=== PATIENT | male | born 1980 | race Caucasian/White ===

== ENCOUNTER 2023-12-31 17:48 | Emergency (ER) | payer MEDICAID, SELFPAY ==
--- NOTE | 2023-12-31 18:01 | ED_ITS ---
HPI - Overdose General Chief Complaint: Overdose Stated Complaint: OD, 2MG NARCAN GIVEN Time Seen by Provider: 12/31/23 18:01 Source: patient Mode of arrival: ambulatory Limitations: no limitations History of Present Illness ED Provider: magdalena PHAM Narrative: Patient with remote history of substance abuse was using weed likely lased with fentanyl which he was not aware was given 2 mg of Narcan by EMS now patient is alert awake patient was found with several bags of heroin with him Related Data Allergies Allergy/AdvReac Type Severity Reaction Status Date / Time Penicillins [PENICILLINS] Allergy Severe ANAPHYLACTI Unverified 12/31/23 18:09 C codeine [CODEINE] Allergy Mild RASH Unverified 12/31/23 18:09 Review of Systems Review of Systems: Yes all other systems are reviewed and are negative [facility] Social History Social History Advance Directives: No Advance Directives Information Provided: No Do you have a plan to hurt others: No Plan Physical Exam Vital Signs: Vital Signs: Last Vital Signs Temp 97.6 F 12/31/23 20:07 Pulse 70 12/31/23 20:07 Resp 16 12/31/23 20:07 BP 148/74 H 12/31/23 20:07 Pulse Ox 96 12/31/23 20:07 O2 Del Method Room Air 12/31/23 20:07 BMI result Body Mass Index 32.3 Appearance: Alert. Oriented X3. No acute distress. Eyes: PERRLA, No Nystagmus ENT: Pharynx normal. Oral Mucosa moist Neck: Normal inspection. Neck supple. CVS: Normal heart rate and rhythm. Pulses normal. Respiratory: No respiratory distress. Equal air entry bilateral, no wh eezing/rales/rhonchi Abdomen: Soft and nontender. Bowel sounds are present, no mass palpable, no CVA tenderness Skin: Skin warm and dry. Normal skin color. Normal skin turgor. Extremities: No lower extremity edema. No calf tenderness Neuro: Oriented X 3. No motor deficit. No sensory deficit.No cerebellar signs , cranial nerves II-XII intact Medications Administered Discontinued Medications Generic Name Dose Route Start Last Admin Trade Name Freq PRN Reason Stop Dose Admin Naloxone HCl 8 mg 12/31/23 19:17 12/31/23 20:07 Naloxone Hcl Nasal Take Home 4 Mg [place] NOSTRILALT 12/31/23 19:18 Not Given ONCE ONE Medical Decision Making Medical Decision Making MDM Narrative: Patient's substance abuse urine positive for methadone and fentanyl walking does not want to go to detox discharge patient home on home Narcan Lab Data [facility] Lab Attestation statement: I reviewed the patient's lab results. Labs: Lab Results 12/31/23 Range/Units 19:27 Urine Opiates Screen Not Detected (Not Detect) Ur Buprenorphine Scrn Not Detected (Not Detect) ng/mL Ur Oxycodone Screen Not Detected (Not Detect) ng/mL Urine Methadone Screen Positive H (Not Detect) ng/mL Urine Fentanyl Screen POSITIVE H (Not Detect) Ur Barbiturates Screen Not Detected (Not Detect) Ur Phencyclidine Scrn Not Detected (Not Detect) Ur Amphetamines Screen Not Detected (Not Detect) U Benzodiazepines Scrn Not Detected (Not Detect) Urine Cocaine Screen Not Detected (Not Detect) U Marijuana (THC) Screen Not Detected (Not Detect) Discharge Plan Discharge Clinical Impression: Poisoning by opiate or related narcotic Patient Disposition: Home, Self-Care Instructions: Opioid Use Disorder (ED) Additional Instructions: Do not use heroin/opiate Follow up with detox Interventions: ED Discharge Assessment Last Done: 12/31/23 20:07 Discharge Date/Time: 12/31/23 20:09 Print Language: Slovenian
[2023-12-31 18:04] VITALS: BP 134/78; PULSE 110; RESP 16; TEMP 36.9; O2SAT 98; BMI 32.3
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
--- OUTSIDE RECORDS SUMMARY | 2023-12-31 19:43 | XMS_ITS | Continuity of Care Document ---
Author Organization [facility] Address [address] [place] [address]- Care Team Providers Care Mosaic Layer Name Role Phone Line-Verena Avilez DO Primary Care Physician [phone] [place] [facility] [place] - 07/04/[address] [address] [phone] Discharge Disposition: A-D/C Home Attending Physician: Juanpablo Burger DO Admitting Physician: Juanpablo Burger DO Referring Physician: Not on Staff, Referring MD Allergies, Adverse Reactions, Alerts Substance Reaction Severity Status codeine Active penicillin Active sulfa drugs Active Motrin Nausea Unknown Active Vicodin itchy Active Immunizations Given and Recorded Vaccine Date Status Refusal Reason tetanus/diphtheria/pertussis, acel(Tdap) 1 11/24/10 Given 1Admin Note: vis given Medications Chlordiazepoxide 75 mgs, By Mouth, Daily, 0 Refills, Maintenance, 07/04/19 7:10:00 EST Start Date: 07/04/19 Status: Ordered chlordiazePOXIDE 25 mg oral capsule 3 capsule = 75 mg, By Mouth, 2 times a day, 0 Refills, Maintenance, 07/05/19 1:39:00 EST Start Date: 07/05/19 Status: Ordered chlordiazePOXIDE 25 mg oral capsule 3 capsule = 75 mg, By Mouth, 3 times a day, 0 Refills, Maintenance, 07/03/19 1:40:00 EST, Capsule Start Date: 07/03/19 Status: Ordered cloNIDine 0.1 mg oral tablet 0.1 mg, 1, tablet, By Mouth, 2 times a day, # 60 tablet, Refills 0, Maintenance, 07/04/19 7:11:00 EST Start Date: 07/04/19 Status: Ordered folic acid 1 mg oral tablet 1 mg, By Mouth, Daily, # 30 tablet, Refills 0, Tot. Refills 0, Maintenance, 02/10/19 10:35:58 EDT, Print Requisition Start Date: 02/10/19 Stop Date: 03/12/19 Status: Ordered Gabapentin 600 mgs, By Mouth, 3 times a day, 0 Refills, Maintenance, 07/04/19 7:13:00 EST Start Date: 07/04/19 Status: Ordered Methadone = 30 mg, By Mouth, Daily, 0 Refills, Maintenance, 07/04/19 7:13:00 EST, Partial fill upon patient request Start Date: 07/04/19 Status: Ordered thiamine 100 mg oral tablet 100 mg, 1, tablet, By Mouth, Daily, # 7 tablet, Refills 0, Maintenance, 07/04/19 7:14:00 EST Start Date: 07/04/19 Stop Date: 07/11/19 Status: Ordered Problem List Condition Effective Dates Status Health Status Inform ant Pain in forearm - right(Confirmed) Active Right wrist sprain 11/22/10(Confirmed) 11/22/10 Active Vital Signs Most recent to oldest [Reference Range]: 1 2 3 Height 178 cm (07/04/19 9:46 AM) 178 cm (07/04/19 9:00 AM) 178 cm (07/04/19 8:15 AM) Weight 73 kg (07/04/19 9:46 AM) 73 kg (07/04/19 9:00 AM) 73 kg (07/04/19 8:15 AM) Oxygen Saturation [94-100 %] 98 % (07/04/19 9:46 AM) 99 % (07/04/19 6:29 AM) Pulse Rate [55-90 bpm] 66 bpm (07/04/19 9:46 AM) 62 bpm (07/04/19 9:00 AM) 78 bpm (07/04/19 6:29 AM) Body Mass Index [18.5-24.99] 23.04 (07/04/19 9:46 AM) 23.04 (07/04/19 9:00 AM) 23.04 (07/04/19 8:15 AM) Blood Pressure [90-138/55-84 mm Hg] 111/72mm Hg (07/04/19 9:46 AM) 104/66mm Hg (07/04/19 9:00 AM) 122/100mm Hg (07/04/19 8:15 AM) Respiratory Rate [16-30 br/min] 18 br/min (07/04/19 7:52 AM) 18 br/min (07/04/19 6:29 AM) Temperature [96.8-100.4 DegF] 97.5 DegF (07/04/19 6:29 AM) Mode of Delivery (Oxygen) Room air (07/04/19 9:46 AM) Room air (07/04/19 6:29 AM) Blood pressure sites Arm, left (07/04/19 9:46 AM) Arm, right (07/04/19 9:00 AM) Arm, right (07/04/19 8:15 AM) Temperature Route Oral (07/04/19 6:29 AM) Dry Weight 73 kg (07/04/19 9:46 AM) 73 kg (07/04/19 9:00 AM) 73 kg (07/04/19 8:15 AM)
--- OUTSIDE RECORDS SUMMARY | 2023-12-31 19:43 | XMS_ITS | Continuity of Care Document ---
Author Organization [facility] Address [address] [place] [address]- Care Team Providers Care Large Animal Husbandry Technician Name Role Phone Line-Verena Avilez DO Primary Care Physician [phone] Encounter [facility] [place] Date(s): 07/04/19 - 07/05/[address] [address] [phone] Discharge Disposition: Transferred to short-term general hospit Attending Physician: Florian West MD Admitting Physician: Florian West MD Referring Physician: Not on Staff, Referring MD Allergies, Adverse Reactions, Alerts Substance Reaction Severity Status codeine Active penicillin Active sulfa drugs Active Motrin Nausea Unknown Active Vicodin itchy Active Suboxone Active Immunizations Given and Recorded Vaccine Date Status Refusal Reason tetanus/diphtheria/pertussis, acel(Tdap) 1 11/24/10 Given 1Admin Note: vis given Medications Alprazolam 2 mg, By Mouth, 3 times a day, PRN, Refills 0, Maintenance, as needed for anxiety, 07/05/19 2:31:00EST Start Date: 07/05/19 Status: Ordered Chlordiazepoxide 75 mgs, By Mouth, Daily, 0 [...] patient request Start Date: 07/04/19 Status: Ordered Phenobarbital PRN Seizure Activity, 0 Refills, Maintenance, 07/05/19 3:12:00 EST Start Date: 07/05/19 Status: Ordered thiamine 100 mg oral tablet [...] 1 2 3 Height 178 cm (07/04/19 11:37 PM) 178 cm (07/04/19 11:00 PM) 178 cm (07/04/19 9:11 PM) Weight 61.5 kg (07/04/19 11:37 PM) 61.5 kg (07/04/19 11:00 PM) 61.5 kg (07/04/19 9:11 PM) Oxygen Saturation [94-100 %] 99 % (07/04/19 11:37 PM) 98 % (07/04/19 11:00 PM) 98 % (07/04/19 9:11 PM) Pulse Rate [55-90 bpm] 69 bpm (07/04/19 11:37 PM) 76 bpm (07/04/19 11:00 PM) 78 bpm (07/04/19 9:11 PM) Body Mass Index [18.5-24.99] 19.41 (07/04/19 11:37 PM) 19.41 (07/04/19 11:00 PM) Blood Pressure [90-138/55-84 mm Hg] 122/94mm Hg (07/04/19 11:37 PM) 115/78mm Hg (07/04/19 11:00 PM) 131/69mm Hg (07/04/19 9:11 PM) Respiratory Rate [16-30 br/min] 18 br/min (07/04/19 11:37 PM) 18 br/min (07/04/19 11:00 PM) 18 br/min (07/04/19 9:11 PM) Mode of Delivery (Oxygen) room air (07/04/19 11:37 PM) Room air (07/04/19 11:00 PM) Room air (07/04/19 9:11 PM) Blood pressure sites Arm, left (07/04/19 11:00 PM) Arm, left (07/04/19 9:11 PM) Dry Weight 61.5 kg (07/04/19 11:37 PM) 61.5 kg (07/04/19 11:00 PM) 61.5 kg (07/04/19 9:11 PM) Social History Social History Type Response Smoking Status 10 or more cigarette s (1/2 pack or more)/day in last 30 days; Type: Cigarettes; Other: 30 a day; entered on: 07/05/19 Sex
--- OUTSIDE RECORDS SUMMARY | 2023-12-31 19:43 | XMS_ITS | Continuity of Care Document ---
Author Organization [facility] Address [address] [place] [address]- Care Team Providers Care Stock Patcher Name Role Phone Line-Verena Avilez DO Primary Care Physician Encounter [facility] [place] Date(s): 01/06/23 - 01/06/23 [facility] [address] [place] [address]- Discharge Disposition: A-D/C Snf, Mcfp, or Group Home Fac Attending Physician: Daniela Hebert MD Admitting Physician: Daniela Hebert MD Referring Physician: Not on Staff, Referring [...] Date: 07/11/19 Status: Ordered Problem List Condition Confirmation Course Effective Dates Status [facility] Pain in forearm - right Confirmed Active Right wrist sprain 11/22/10 Confirmed 11/22/10 Active Vital Signs Most recent to oldest [Reference Range]: 1 2 Height 180 cm (01/06/23 1:01 AM) Weight 71 kg (01/06/23 1:01 AM) Oxygen Saturation [94-100 %] 100 % (01/06/23 2:15 AM) 99 % (01/06/23 1:01 AM) Pulse Rate [55-90 bpm] 58 bpm (01/06/23 2:15 AM) 68 bpm (01/06/23 1:01 AM) Blood Pressure [90-138/55-84 mm Hg] 134/ 84mm Hg (01/06/23 2:15 AM) 114/69mm Hg (01/06/23 1:01 AM) Respiratory Rate [16-30 br/min] 18 br/mi n (01/06/23 2:15 AM) 15 br/min *L* (01/06/23 1:01 AM) Temperature [96.8-100.4 DegF] 98.3 DegF (01/06/23 1:01 AM) Mode of Delivery (Oxygen) Room air (01/06/23 2:15 AM) Room air (01/06/23 1:01 AM) Blood pressure sites Arm, right (01/06/23 2:15 AM) Arm, left (01/06/23 1:01 AM) Temperature Route Oral (01/06/23 1:01 AM) Dry Weight 71 kg (01/06/23 1:01 AM) Weight Obtained Via Bed scale (01/06/23 1:01 AM) Dry Weight Obtained Via Bed scale (01/06/23 1:01 AM) Social History Social History Type Response Smoking Status 10 or more cigarette s (1/2 pack or more)/day in last 30 days; Type: Cigarettes; Other: 30 a day; entered on: 07/05/19 Sex Patient Care team information Care Team Personnel Name: Verena Drew DO Position: Reference Physician Member Role: PCP Address: Address: [address] [place] [address], [facility] [address] [place] [address]- Name: Michele Caro RN Position: [facility] RN Member Role: Primary Care Nurse Name: Lula Blanco RN Position: [facility] RN Member Role: Primary Care Nurse Name: Daniela Hebert MD Position: [facility] ED Medicine MD Member Role: ED Attending Physician Address: Address: [address] [place] [id number]- Name: Yesenia Lorenzo RN Position: [facility] ED RN W/OE and Tasks Member Role: Patient Care Provider Care Team Related Persons Name: CYDNEY JAUREGUI Address: home [address] [place] [id number]
--- OUTSIDE RECORDS SUMMARY | 2023-12-31 19:43 | XMS_ITS | Continuity of Care Document ---
Author Organization [facility] Address [address] [place] [address]- Care Team Providers Care Hygiene Assistant Name Role Phone Line-Verena Avilez DO Primary Care Physician [phone] [place] [facility] [place] 07/05/19 - 07/07/[address] [address]- [facility] Discharge Disposition: A-D/C Home Attending Physician: Titi Stover DO Admitting Physician: Tim Diaz MD Referring Physician: Tim Diaz MD Allergies, Adverse Reactions, Alerts Substance Reaction [...] oldest [Reference Range]: 1 2 3 Height 180 cm (07/05/19 11:45 PM) 180 cm (07/05/19 7:36 PM) 180 cm (07/05/19 7:04 AM) Weight 74.2 kg (07/05/19 2:24 AM) 62.9 kg (07/05/19 2:17 AM) Oxygen Saturation [94-100 %] 98 % (07/06/19 11:28 PM) 99 % (07/06/19 8:32 PM) 99 % (07/06/19 10:00 AM) Pulse Rate [55-90 bpm] 63 bpm (07/06/19 11:28 PM) 73 bpm (07/06/19 8:32 PM) 67 bpm (07/06/19 10:00 AM) Body Mass Index [18.5-24.99] 22.9 (07/05/19 2:24 AM) Blood Pressure [90-138/55-84 mm Hg] 122/82mm Hg (07/06/19 11:28 PM) 124/81mm Hg (07/06/19 8:32 PM) 113/69mm Hg (07/06/19 10:00 AM) Respiratory Rate [16-30 br/min] 18 br/min (07/07/19 9:03 AM) 18 br/min (07/07/19 9:02 AM) 20 br/min (07/06/19 11:28 PM) Temperature [96.8-100.4 DegF] 98.1 DegF (07/06/19 11:28 PM) 98.3 DegF (07/06/19 8:32 PM) 98.4 DegF (07/06/19 10:00 AM) Liters per Minute 0 L/min (07/05/19 12:00 PM) 0 L/min (07/05/19 8:26 AM) Mode of Delivery (Oxygen) Room air (07/06/19 11:28 PM) Room air (07/06/19 8:32 PM) Room air (07/06/19 10:00 AM) Blood pressure sites Arm, right (07/06/19 11:28 PM) Arm, right (07/06/19 8:32 PM) Arm, left (07/06/19 10:00 AM) Temperature Route Oral (07/06/19 11:28 PM) Oral (07/06/19 8:32 PM) Oral (07/06/19 10:00 AM) Dry Weight 74.2 kg (07/05/19 2:24 AM) Weight Obtained Via Bed scale (07/05/19 2:17 AM) Sensory deficits None (07/05/19 2:24 AM) Mobility assistance Independent (07/05/19 2:24 AM) Social History Social History Type Response Smoking Status 10 or more cigarette s (1/2 pack or more)/day in last 30 days; Type: Cigarettes; Other: 30 a day; entered on: 07/05/19 Sex
--- OUTSIDE RECORDS SUMMARY | 2023-12-31 19:43 | XMS_ITS | Continuity of Care Document ---
Author Organization [facility] Address [address] [place] [address] Phone Care Team Providers Care Check And Transfer Beader Name Role Phone Pcp-Amanda, Md CASON Primary Care Provider Chidi Andujar MD Emergency Provider [email or web address] Care Teams Patient Care Team Team Status: Active Member Role Status Dates Pcp-MD Amanda Primary Care Provider Active Patient Care Team Team Status: Inactive Member Role Status Dates Pcp-Amanda , Primary Care Provider Active St art: December 05, 2023 End: December 05, 2023 Chidi Draper MD Emergency Provider Active Start : December 05, 2023 End: December 05, 2023 Chief Complaint and Reason for Visit Chief Complaint Admit Date ALT MS December 05, 2023 1:14 pm Allergies, Adverse Reactions, Alerts Allergen Type Severity Reaction Last Updated Verified Status hydrocodone Allergy Mild unknown December 05, 2023 1:16pm Yes Active Penicillins Allergy Mild unknown December 05, 2023 1:16pm Yes Active Social History Smoking Status Status Start Date End Date Date of Observa tion Unknown if ever smoked December 05, 2023 3:45pm Observation Status Observation Response Date of Response Living Situation Short Term Rehab December 04 3:45pm Patient Sex Male December 05, 2023 4:51pm Assigned Sex Male April Problems Active Problems Medical Problem Onset Date Status Opiate use Active Substance abuse Active Lethargy Active Relevant Diagnostic Tests and/or Laboratory Data Laboratory Results Test Date/Time Result Interpretation Reference Range Result Comment Performing Site White Blood Count December 05, 2023 2:30pm 11.5 X10 3/uL 4.5-11.0 [facility] [id number] [address] [place] [address] Red Blood Count December 05, 2023 2:30pm 4.61 X10 6/uL 4.00-5.50 [facility] [id number] [address] [facility] Yohan BELLAMY [address] Hemoglobin December 05, 2023 2:30pm 13.2 g/dl 13.0-17.0 [facility] [id number] 200 [facility] Yohan BELLAMY [address] Hematocrit December 05, 2023 2:30pm 38.8 % 37.5-50.0 [facility] [id number] 200 [facility] Yohan JOSESITO [address] Mean Corpuscular Volume December 05, 2023 2:30pm 84.2 fl 80.0-100.0 [facility] [id number] 200 [facility] Yohan JOSESITO [address] Mean Corpuscular Hemoglobin December 05, 2023 2:30pm 28.6 pg 27.0-34.0 [facility] [id number] [address] [facility] [address] Mean Corpuscular Hemoglobin Concent December 05, 2023 2:30pm 34.0 g/dl 31.0-36.0 [facility] [id number] 200 [facility] Yohan JOSESITO [address] Red Cell Distribution Width December 05, 2023 2:30pm 12.6 % 11.5-15.0 [facility] [id number] 200 [facility] Yohan BELLAMY [address] Platelet Count December 05, 2023 2:30pm 113 X10 3/uL 150-400 [facility] [id number] 200 [facility] [address] Immature Granulocyte % (Auto) December 05, 2023 2:30pm 0.4 % [facility] [id number] [address] [facility] [address] Neutrophils (%) (Auto) December 05, 2023 2:30pm 79.7 % [facility] [id number] [address] [facility] [address] Lymphocytes (%) (Auto) December 05, 2023 2:30pm 12.3 % [facility] [id number] 200 [facility] [address] Monocytes (%) (Auto) December 05, 2023 2:30pm 5.4 % [facility] [id number] 200 [facility] [address] Eosinophils (%) (Auto) December 05, 2023 2:30pm 1.9 % [facility] [id number] 200 [facility] [address] Basophils (%) (Auto) December 05, 2023 2:30pm 0.3 % [facility] [id number] 200 [facility] [address] Immature Granulocyte # (Auto) December 05, 2023 2:30pm 0.05 X10 3/uL 0.00-0.09 [facility] [id number] 200 [facility] [address] Neutrophils # (Auto) December 05, 2023 2:30pm 9.2 X10 3/uL 1.5-7.8 [facility] [id number] 200 [facility] [address] Lymphocytes # (Auto) December 05, 2023 2:30pm 1.4 X10 3/uL 1.0-4.8 [facility] [id number] 200 [facility] [address] Monocytes # (Auto) December 05, 2023 2:30pm 0.6 X10 3/uL 0.0-0.8 [facility] [id number] 200 [facility] [address] Eosinophils # (Auto) December 05, 2023 2:30pm 0.2 X10 3/uL 0.0-0.5 [facility] [id number] 200 [facility] [address] Basophils # (Auto) December 05, 2023 2:30pm 0.0 X10 3/uL 0.0-0.2 [facility] [id number] 200 [facility] [address] Nucleated Red Blood Cells % December 05, 2023 2:30pm 0.0 /100 WBC 0.0-0.0 [facility] [id number] 200 [facility] [address] Sodium Level December 05, 2023 2:31pm 136 mmol/L 137-146 [facility] [id number] [address] [facility] [address] Potassium Level December 05, 2023 2:31pm 5.1 mmol/L 3.5-5.3 [facility] [id number] 200 [facility] [address] Chloride Level December 05, 2023 2:31pm 100 mmol/L 98-107 [facility] [id number] 200 [facility] [address] Carbon Dioxide Level December 05, 2023 2:31pm 22 mmol/L 23-32 [facility] [id number] 200 [facility] [address] Anion Gap December 05, 2023 2:31pm 14 mmol/L 5-15 [facility] [id number] 200 [facility] [address] Blood Urea Nitrogen December 05, 2023 2:31pm 15 mg/dl 5-25 [facility] [id number] 200 [facility] [address] Creatinine December 05, 2023 2:31pm 1.1 mg/dL 0.6-1.4 [facility] [id number] 200 [facility] [address] Estimated Creatinine Clearance December 05, 2023 2:31pm 104.1 ml/min This value is calculated by Cockcroft Gault Equation using ideal body weight. This result is dependent on an accurate patient height and weight which is obtained from patients medical record. Petracroft, D.W. and M.H. Gault. Prediction of creatinine clearance from serum creatinine. Nephron. 1976. 16(1):31-41. [facility] [id number] 200 [facility] [address] Estimat Glomerular Filtration Rate December 05, 2023 2:31pm 86 >90 Reported eGFR is based on the CKD-EPI 2020 equation that does not use a race coefficient. Additional information can be found at:[email or web address] ([email or web address]) [facility] [id number] 200 [facility] [address] BUN/Creatinine Ratio December 05, 2023 2:31pm 13.6 10.0-20.0 [facility] [id number] 200 [facility] [address] Glucose Level December 05, 2023 2:31pm 104 mg/dL 70-100 [facility] [id number] 200 [facility] [address] Calcium Level December 05, 2023 2:31pm 9.9 mg/dl 8.6-10.3 [facility] [id number] 200 [facility] [address] Total Bilirubin December 05, 2023 2:31pm 0.4 mg/dl <1.1 [facility] [id number] 200 [facility] [address] Aspartate Amino Transf (AST/SGOT) December 05, 2023 2:31pm 45 U/L 15-41 [facility] [id number] 200 [facility] [address] Alanine Aminotransfera se (ALT/SGPT) December 05, 2023 2:31pm 40 U/L 14-63 [facility] [id number] 200 [facility] [address] Ammonia December 05, 2023 2:08pm 50 umol/L 16-60 [facility] [id number] 200 [facility] [address] Total Protein December 05, 2023 2:31pm 7.4 g/dL 6.4-8.3 [facility] [id number] 200 [facility] [address] Albumin December 05, 2023 2:31pm 4.1 g/dl 4.0-5.0 [facility] [id number] 200 [facility] [address] Albumin/Globul in Ratio December 05, 2023 2:31pm 1.2 1.0-2.6 [facility] [id number] 200 [facility] [address] Alkaline Phosphatase December 05, 2023 2:31pm 102 U/L 40-129 [facility] [id number] 200 [facility] [address] Urine Amphetamines Screen December 05, 2023 2:26pm Negative Negative Amphetamines Cutoff level 1000 ng/mL. [facility] [id number] 200 [facility] [address] Urine Methadone Screen December 05, 2023 2:26pm Positive Negative Confirmation by GC/MS not routinely performed for Non-Maternity locations. If confirmation is required, an order must be placed.Methadone Cutoff level 300 ng/mL [facility] [id number] 200 [facility] [address] Urine Oxycodone Screen December 05, 2023 2:26pm Negative Negative Oxycontin/Oxycod one Cutoff level 100 ng/mL [facility] [id number] 200 [facility] [address] Urine Buprenorphine Screen December 05, 2023 2:26pm Negative Negative Buprenorphine Cutoff level 5 ng/mL [facility] [id number] [address] [facility] [address] Urine Opiates Screen December 05, 2023 2:26pm Negative Negative Opiate Cutoff level 300 ng/mLOxycontin/O xycodone is not detected below the threshold of20,000 ng/mL [facility] [id number] [address] [facility] [address] Urine Fentanyl Screen December 05, 2023 2:26pm Positive Negative Confirmation by GC/MS not routinely performed for Non-Maternity locations. If confirmation is required, an order must be placed.Fentanyl Cutoff level 2.0 ng/mL [facility] [id number] [address] [facility] [address] Valproic Acid (Depakene) Level December 05, 2023 2:31pm 50 ug/mL 50-100 [facility] [id number] [address] [facility] [address] Urine Benzodiazepine s Screen December 05, 2023 2:26pm Negative Negative Please note that the current method for benzodiazepines may be less sensitive to lorazapam detection than previously. If this result is negative and you are concerned about a false negative result for lorazepam, additional testing is possible. Please contact the laboratory.Benzo diazepine Cutoff level 200 ng/mL [facility] [id number] 200 [facility] [address] Urine Cocaine Screen December 05, 2023 2:26pm Negative Negative Cocaine Cutoff level 300 ng/mL [facility] [id number] 200 [facility] [address] Urine Cannabinoids Screen December 05, 2023 2:26pm Negative Negative THC Cutoff level 50 ng/mLThis report is intended for use in clinical monitoring and management of patients. It is not intended for use in employment related drug testing or court related proceedings. Samples are not routinely tested for adulteration and are assumed to be within the normal physiological pH range of 5 - 8. [facility] [id number] [address] [facility] [address] Vital Signs Vital Reading Result Reference Range Collection Date/Time Height 175.26 cm December 05, 2023 1:17pm Weight 104.32 kg December 05, 2023 1:17pm Body Temperature 98.4 [degF] 97.6-99.6 December 05, 2023 1:17pm Heart Rate 84 /min 60-90 December 05, 2023 4:40pm Respiratory rate 18 /min 12-24 December 05, 2023 3:20pm Oxygen saturation by Pulse oximetry 100 % 95-100 December 05, 2023 4:40 pm BP Systolic 128 mm[Hg] 90-140 December 05, 2023 4:40pm BP Diastolic 95 mm[Hg] 60-90 December 05, 2023 4:40pm BMI (Body Mass Index) 34.0 kg/m2 November 242023 1:17pm Inhaled oxygen flow rate 5 L/min Nov 3:20pm Advance Directives Advance Directive Response Recorded Date/ Time Advance Directives No December 04 1:33pm Health Care Proxy No December 04 1:33pm Insurance Providers Guarantor Baron Carmelina Alcantara Address [address] [place] [address] Contact Info. Home Phone: Payer Policy Id Coverage Id Subscriber's Name Subscriber Id Effective Date Expiration Date [facility] (Medicaid) [id number] Baron Carmelina Alcantara [id number] [facility] No [facility] [id number] Baron Carmelina Alcantara [id number] Encounters Encounter Location(s) Arrival/Admit Date Discharge/Depart Date Provider(s) Departed Emergency [facility]-Emergency Department December 05, 2023 1:14pm December 05, 2023 4:40pm null Plan of Treatment Future Tests Future scheduled test information is unavailable Pending Tests Test Name Ordered Date Scheduled Date [place] Level December 05, 2023 2:32pm Future Visits Future appointment information is unavailable Referrals to Other Providers Reason for Referral Referral Start Date Provider Provider Contact Information Provider Address Pcp-Md KAMLA Patel Future Procedures Procedure Name Ordered Date Scheduled Date Peripheral IV Insert/Manage December 05, 2023 2:07 pm Ne 11th, 2024 2:08pm Future Medications Future medication information is unavailable Patient Instructions Instruction Admit Date MASS. OPIOID INSTRUCTIONS December 04 1:14pm Progress Note Author Chidi Draper [facility] Note Date/Time December 05, 2023 3:53 pm [place] [id number] Emergency Department Document Signed Patient: Baron Carmelina Alcantara Medical Record#: [id number] : 1980 Acct:[id number] Age/Sex: 43 / M Admit/Reg Date: 12/05/23 Loc: ED.MA Room: Report Number: [id number]: Chidi Draper MD Arrival - Arrival ED Triage Note: PT COMES FROM [facility] WITH REPORTS OF LETHARGY. PT AWAKENS TO VERBAL BUT IMMEDIATELY FALLS BACK TO SLEEP. PT HAD 180 MG OF METHADONE ADMINISTERED THIS AM. PT STATES HE TAKES IT DAILY. PT DENIES ANY OTHER DRUGS. Altered Mental Status HPI - General Nursing note reviewed: Yes Source: patient Mode of arrival: EMS Limitations: altered mental status Primary Care Provider: Pcp-Amanda,Md - General Chief Complaint: Altered Mental Status Stated Complaint: ALT MS - History of Present Illness HPI narrative: Patient comes from [facility] with history of substance abuse recently on methadone, with more somnolence according to the staff at the facility of unclear etiology. Denies taking any medications illegally but afterhe arrived here, the clinician at the facility was concerned he was sneaking medications. He had told staff that he had had drugs up his bottom and was sneaking the medication. In the ER???the patient is quite somnolent yet arousable. Saturation stable. No recent trauma or focal deficits denies alcohol use (Chidi Draper) - Related Data Allergies Allergy/AdvReac Type Severity Reaction Status Date / Time hydrocodone Allergy Mild unknown Verified 12/05/23 13:16 Penicillins Allergy Mild unknown Verified 12/05/23 13:16 Review of Systems All Other Systems (except as marked in HPI): Reviewed and Negative Family/Social History - Social History Living Situation: Short Term Rehab (Patient in drug rehab) Smoking Status: Former tobacco user Current or Hx of Recreational Drug use: Yes Physical Exam Triage Vital Signs: Temperature 98 F 12/05/23 13:14 Temperature Source Oral 12/05/23 13:14 Pulse Rate 88 12/05/23 13:14 Respiratory Rate 18 12/05/23 13:14 Blood Pressure 142/87 H 12/05/23 13:14 Blood Pressure Source Automatic Cuff 12/05/23 13:14 Blood Pressure Mean 105 12/05/23 13:14 Blood Pressure Position Supine 12/05/23 13:14 O2 Sat by Pulse Oximetry 100 12/05/23 13:14 Oxygen Delivery Method Room Air 12/05/23 13:14 Sepsis Action Taken No Action Required 12/05/23 13:14 Sepsis Action Taken by Nursing No Action Required 12/05/23 13:14 Physical Exam: General Appearance: NAD, sleepy Head: Atraumatic Eyes: PERRL, EOMI Ears: Hearing grossly intact, Canals normal Nose: Normal, No nasal discharge Mouth/Throat: Mucosa moist, Pharynx normal Neck: Supple, Non-tender, FROM w/o pain Lymph: No adenopathy Chest: Atraumatic Respiratory: No respiratory distress Cardiovascular: R/R/R Abdominal: Soft, Non-tender Back: No deformity Extremity/Musculoskeletal: Non-tender, No cyanosis, No edema Skin: Warm, Dry, No Rashes Psych: Calm Neuro: Nonfocal (Chidi Draper) Results/Orders - Results and Orders Result diagrams: 12/05/23 14:30 12/05/23 14:31 - Results and Orders Lab Testing & Results 12/05/23 14:08: Ammonia 50 12/05/23 14:26: Urine Opiates Screen Negative, Ur Buprenorphine Scrn Negative, Ur Oxycodone Screen Negative, Urine Methadone Screen Positive H, Urine Fentanyl Screen Positive H, Ur Amphetamines Screen Negative, U Benzodiazepines Scrn Negative, Urine Cocaine Screen Negative, U Cannabinoids Screen Negative 12/05/23 14:30: WBC 11.5 H, RBC 4.61, Hgb 13.2, Hct 38.8, MCV 84.2, MCH 28.6, MCHC 34.0, RDW 12.6, Plt Count 113 L, Immature Gran % (Auto) 0.4, Neut % (Auto) 79.7, Lymph % (Auto) 12.3, [place] % (Auto) 5.4, Eos % (Auto) 1.9, Baso % (Auto) 0.3, Neut # (Auto) 9.2 H, Lymph # (Auto) 1.4, [place] # (Auto) 0.6, Eos # (Auto) 0.2, Baso # (Auto) 0.0, Immature Gran # (Auto) 0.05, Nucleated RBC % 0.0 12/05/23 14:31: Sodium 136 L, Potassium 5.1, Chloride 100, Carbon Dioxide 22 L, Anion Gap 14, BUN 15, Creatinine 1.1, Estimated Creat Clear 104.1, Estimated GFR86 L, BUN/Creatinine Ratio 13.6, Glucose 104 H, Calcium 9.9, Total Bilirubin 0.4, AST 45 H, ALT 40, Alkaline Phosphatase 102, Total Protein 7.4, Albumin 4.1,Albumin/Globulin Ratio 1.2, Valproic Acid 50 12/05/23 14:32: [place] Pending Medications Ordered: Sodium Chloride () 1,000 mls @ 500 mls/hr IV .Q2H ONE Stop: 12/05/23 16:07 Last Admin: 12/05/23 14:26 Dose: 500 mls/hr Documented By: RONY VELASQUEZ/COURSE Vital Signs Temperature 98 F 12/05/23 13:14 Pulse Rate 88 12/05/23 13:14 Respiratory Rate 18 12/05/23 13:14 Blood Pressure 142/87 H 12/05/23 13:14 O2 Sat by Pulse Oximetry 100 12/05/23 13:14 Temperature 98.4 F 12/05/23 13:17 Pulse Rate 100 H 12/05/23 15:20 Respiratory Rate 18 12/05/23 15:20 Blood Pressure 142/87 H 12/05/23 15:20 O2 Sat by Pulse Oximetry 98 12/05/23 15:20 Oxygen Flow Rate 5 12/05/23 15:20 Clinical Course: 12/05/23 15:43 No distress arousable 12/05/23 15:52 Patient very upset that I told him about the positive fentanyl his talk screen. He adamantly states he has not used it in weeks. He is very agitated and upset about this but definitely alert his saturation is stable Will talk with the clinician at [facility] to let them know about this and transfer him back there. (Chidi Draper) - [facility] Medical decision making narrative: 12/05/23 15:43 Differential diagnosis associated with patient's presentation includes somnolence as a consequence of drug use. Alcohol intoxication head injury stroke electrolyte disturbance infection dehydration The Escalation of care including admission/observation was considered Discussions of management with these providers, clinician at [facility] the patient resides report the patient is using drugs potentially sneaking them intothe system???with some knowledge that the patient did have drugs up his bottom There were chronic conditions affecting the care of the patient since abuse In consideration of the diagnosis, this is likely somnolence from drug use Review of external non-ED record EMS record Diagnostic tests considered but not performed head CT???nonfocal Social Determinants of health significantly affecting care [ ] Additional MDM and clinical course???patient observed here in the ER, we will makesure he becomes more awake for his discharge back to the facility. He did have both methadone and fentanyl positive in his drug screen. Rectal examination revealed an empty bottle no drugs or foreign bodies This note was dictated using voice recognition software. Please excuse any mistranscriptions or other unintended documentation errors. (Chidi Draper) Discharge Plan - Discharge Clinical Impression: Substance abuse, Lethargy, Opiate use Disposition: Home or Self-Care Condition: Good Instructions: MASS. OPIOID INSTRUCTIONS Referrals: Md Gunn MD [Primary Care Provider] - Print Language: Citizen Of [place] - Discharge Data Time Seen by Provider: 12/05/23 14:01 Dictated By: Chidi Draper MD Signed By: Chidi Draper MD 12/05/23 1553 DD/ 1542 TD/TT: 12/05/23 1542 Ship Joiner: MITALI cc: AUDIE Gunn MD
[2023-12-31 19:46] LABS: Amphetamine Screen Urine Not Detected (Not Detect); Barbiturates, Urine Not Detected (Not Detect); Benzodiazepines Screen Urine Not Detected (Not Detect); Buprenorphine Scr Not Detected (Not Detect); Cannabinoid Screen Urine Not Detected (Not Detect); Cocaine Screen Urine Not Detected (Not Detect); Fentanyl, urine POSITIVE (Not Detect); Methadone Screen, Urine Positive (Not Detect); Opiate Screen Urine Not Detected (Not Detect); Oxycodone Screen Urine Not Detected (Not Detect); Phencyclidine Screen Urine Not Detected (Not Detect)
[2023-12-31 19:52] VITALS: BP 148/74; PULSE 70; RESP 16; TEMP 36.4; O2SAT 96
[2023-12-31 20:07] VITALS: BP 148/74; PULSE 70; RESP 16; TEMP 36.4; O2SAT 96
== END 2023-12-31 20:09 | disposition home or self-care (01) ==
PROVIDERS: Emergency Provider Internal Medicine
DX: T40.601A Poisoning by unspecified narcotics, accidental (unintentional), initial encounter (principal); Y92.9 Unspecified place or not applicable; F12.90 Cannabis use, unspecified, uncomplicated
CPT/HCPCS: 80307; 99283

== ENCOUNTER 2024-01-01 08:51 | Inpatient (IN) | payer MEDICAID, OTHER, SELFPAY ==
--- NOTE | ~2024-01-01 | XR_ITS ---
EXAMINATION: XR THORACIC SPINE CLINICAL INFORMATION: Fall. COMPARISON: None available. TECHNIQUE: 3 views of the thoracic spine were obtained. FINDINGS: Mild multilevel degenerative changes in the thoracic spine, most notable in the [id number]-ud-[id number] spine. Mild anterior loss of height of a dbb-wd-ejecz thoracic vertebral body of indeterminate age and etiology. Limited visualization particularly of the upper thoracic spine due to overlying bony and soft tissue structures. XR/XR thoracic spine 3V IMPRESSION: 1. Mild multilevel degenerative changes in the thoracic spine most notable in the ubs-hq-irxbb spine. 2. Mild anterior loss of height of a qar-lh-iftuh thoracic vertebral body of indeterminate age and etiology. 3. Limited visualization particularly of the upper thoracic spine due to overlying bony and soft tissue structures. 4. Additional imaging with CT scan or MRI should be considered for better visualization as these modalities are much more sensitive for detection of fracture or other underlying pathology. This study was presented today January 01, 2024 for interpretation. Stat results provided at this time as requested by referring provider.
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
--- NOTE | ~2024-01-01 | CT_ITS ---
EXAMINATION: CT HEAD WITHOUT CONTRAST CLINICAL INFORMATION: Head trauma. COMPARISON: None available. TECHNIQUE: Contiguous axial imaging was performed from the skull base to vertex without intravenous administration of contrast. This CT examination was performed using dose optimization techniques as appropriate, variously including the following: *Automated exposure control *Adjustment of mA and/or kV according to patient size (this includes techniques or standardized protocols for targeted exams where dose is matched to indication/reason for exam; i.e. extremities or head) *Use of iterative reconstruction technique DLP: 704 mGy-cm FINDINGS: No intra or extra-axial fluid collection, hemorrhage, mass, or mass effect. Calvarium intact. Moderate mucoperiosteal thickening in the ethmoid sinuses and mild mucoperiosteal thickening in the right maxillary sinus noted. CT/CT head/brain wo IV con IMPRESSION: No acute intracranial pathology.
--- NOTE | ~2024-01-01 | XR_ITS ---
EXAMINATION: XR ABDOMEN KUB CLINICAL INDICATION: Abdominal pain, constipation COMPARISON: None available. TECHNIQUE: AP view of the abdomen. FINDINGS: The bowel gas pattern is normal with no evidence of ileus or obstruction. No unusual soft tissue calcifications are noted. The bones are unremarkable. Moderate stool in the colon. XR/XR KUB IMPRESSION: Moderate stool in the colon. Electronically signed by: Cheryl Helton MD 01/21/2024 04:05 AM EDT
[2024-01-01 08:52] VITALS: BP 148/86; PULSE 73; RESP 19; TEMP 36.6; O2SAT 98; BMI 33.5
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
[2024-01-01 09:36] LABS: Appearance Urine Clear; Color Urine Dark Yellow; Glucose Urine UA Negative (Negative); Leukocyte Esterase Urine Negative (Negative); Nitrite Urine Negative (Negative); PH 5.5 (5.0-9.0); Urine Blood Negative (Negative); Urine Ketones Trace mg/dL (Negative); Urine Protein Negative (Neg-Trace)
--- NOTE | 2024-01-01 09:36 | PC.NURSE ---
Methadone Verification [facility] [place] - 175mg split dose with 35mg take home. Verified by [facility] CHARLA Valentine. Dosed 12/31/23 at 0935
--- NOTE | 2024-01-01 09:43 | HE.PHANOTE ---
Addendum entered by Tamie Pena [facility] 01/01/24 09:53: Messaged Dr. Pritchett about scheduled 35mg dose, wants scheduled not PRN. Original Note: METHADONE Dose: 175 mg, last dosed on 12/31/23 @0935 per Meme DUNHAM at [facility]. Pt also gets a 35mg PRN take home dose.
[2024-01-01 09:49] LABS: Amphetamine Screen Urine Not Detected (Not Detect); Barbiturates, Urine Not Detected (Not Detect); Benzodiazepines Screen Urine Not Detected (Not Detect); Buprenorphine Scr Not Detected (Not Detect); Cannabinoid Screen Urine Not Detected (Not Detect); Cocaine Screen Urine POSITIVE (Not Detect); Fentanyl, urine POSITIVE (Not Detect); Methadone Screen, Urine Positive (Not Detect); Opiate Screen Urine Not Detected (Not Detect); Oxycodone Screen Urine Not Detected (Not Detect); Phencyclidine Screen Urine Not Detected (Not Detect)
[2024-01-01] MEDS: methADONE HCl 20 MG/2 ML ORAL.CONC 175 MG PO (09:53)
--- NOTE | 2024-01-01 14:20 | MHC.CARE ---
Care team attempted assessment, he presented as somnolent, possibly impaired on substances. Collateral from [facility] obtained. He will need a new MSU/ risk assessment when more alert/ engagable.
--- NOTE | 2024-01-02 | ECG_ITS ---
Test Reason : PROLONGED QTC Blood Pressure : / mmHG Vent. Rate : 067 BPM Atrial Rate : 067 BPM P-R Int : 172 ms QRS Dur : 094 ms QT Int : 438 ms P-R-T Axes : 052 060 065 degrees QTc Int : 462 ms Normal sinus rhythm with sinus arrhythmia Normal ECG When compared with ECG of 02-JAN-2024 08:26, QT has shortened Referred By: Sari Nino Electronically Signed By:MARCELO LYNNE MD
--- NOTE | 2024-01-02 | ECG_ITS ---
Test Reason : prolonged QT Blood Pressure : / mmHG Vent. Rate : 073 BPM Atrial Rate : 073 BPM P-R Int : 178 ms QRS Dur : 096 ms QT Int : 442 ms P-R-T Axes : 061 037 064 degrees QTc Int : 486 ms Normal sinus rhythm Prolonged QT Abnormal ECG No previous ECGs available Referred By: Antonette Pritchett Electronically Signed By:MARCELO LYNNE MD
[2024-01-02] MEDS: methADONE HCl 20 MG/2 ML ORAL.CONC 175 MG PO (08:02)
--- NOTE | 2024-01-02 08:06 | PC.NURSE ---
Pt alert and oriented, breathing even and unlabored, reports back pain since SI attempt. Also reports upset stomach, says his methadone will help that. Medicated per JUL. Pt agreeable to have his labs drawn this morning, 3 attempts yesterday unsuccessful due to pt being hard stick. Phlebotomy called and requested
[2024-01-02 08:32] LABS: MANUAL DIFF FLAG NO
[2024-01-02 08:38] LABS: Basophils Absolute Auto 0.1 X10*3/uL (0.0-0.2); Basophils Percent Auto 0.7 % (0-2); Eosinophils Absolute Auto 0.3 X10*3/uL (0.0-0.4); Eosinophils Percent Auto 3.8 % (0-4); Hematocrit 43.5 % (42.0-52.0); Hemoglobin 14.9 g/dl (14.0-18.0); Imm Gran Abs Auto 0.03 X10*3/uL (0.00-0.03); Imm Gran Pct Auto 0.4 % (0.0-0.4); Lymphocytes Absolute Auto 1.5 X10*3/uL (1.2-4.9); Lymphocytes Percent Auto 19.3 % (20-40); Mean Corpuscular HGB Conc 34.3 g/dl (31.0-36.0); Mean Corpuscular Hemoglobin 28.1 pg (27.0-33.0); Mean Corpuscular Volume 82.1 fL (80.0-98.0); Mean Platelet Volume 9.2 fL (9.4-12.4); Monocytes Absolute Auto 0.5 X10*3/uL (0.1-1.2); Monocytes Percent Auto 6.7 % (2-11); Neutrophils Absolute Auto 5.3 x10*3/uL (2.0-8.3); Neutrophils Percent Auto 69.1 % (45-73); Platelet Count 155 X10*3/uL (160-400); Red Cell Distribution Width 13.9 % (11.0-16.0); White Blood Count 7.7 X10*3/uL (4.8-10.8)
[2024-01-02 08:49] LABS: Lithium 0.32 mmol/L (0.60-1.20)
[2024-01-02 08:51] LABS: Alanine Aminotransferase 61 U/L (0-40); Albumin Level 4.2 g/dL (3.5-5.0); Alkaline Phosphatase 113 U/L (39-117); Anion Gap 13 (12-20); Aspartate Amino Transferase 104 U/L (5-37); Bilirubin Direct 0.3 mg/dL (0.0-0.5); Bilirubin Total 0.7 mg/dL (0.0-1.0); Blood Urea Nitrogen 25 mg/dL (9-16); Calcium 9.7 mg/dL (8.4-10.2); Carbon Dioxide 26 mmol/L (22-29); Chloride 105 mmol/L (96-108); Creatinine Clr Calc Pharmacy 108.6; Estimated Glomerular Filt Rate > 60; Glucose Random 93 mg/dL (60-115); Potassium 3.9 mmol/L (3.3-5.1); Sodium 140 mmol/L (135-145); Total Protein 7.6 g/dL (6.5-8.0)
[2024-01-02 08:52] LABS: Acetaminophen LAB < 3 mcg/mL (<30); Ethanol < 10 mg/dL; Salicylate < 5.0 mg/dL (15-30)
[2024-01-02 08:55] LABS: Valproate < 12.5 mcg/mL (50.0-100.0)
[2024-01-02 11:51] VITALS: RESP 16
[2024-01-02 12:31] VITALS: BP 137/88; PULSE 88; RESP 18; TEMP 36.2; O2SAT 97
--- NOTE | 2024-01-02 13:36 | PHA.MEDREC ---
Addendum entered by Micky Singh RPh 01/02/24 14:30: Med Rec checked by [facility] Original Note: Pharmacy Consult ? Medication Reconciliation Pharmacy has completed the medication reconciliation. Confirmed medications with list provided by [facility] in [place].
--- NOTE | 2024-01-02 14:44 | MHC.CARE ---
patient re-assessed by CARE team today. patient is voluntary for IPLOC.
[2024-01-02] MEDS: Escitalopram Oxalate 20 MG TABLET PO (15:14)
[2024-01-02] MEDS: Lithium Carbonate 300 MG CAPSULE PO ×2 (15:14→20:09)
[2024-01-02] MEDS: Gabapentin 400 MG CAPSULE PO (15:14)
[2024-01-02] MEDS: Omeprazole 20 MG CAPSULE.DR PO (15:14)
[2024-01-02] MEDS: Cyclobenzaprine HCl 10 MG TABLET PO ×2 (15:14→20:09)
[2024-01-02] MEDS: hydrOXYzine HCL 50 MG TABLET PO (15:14)
[2024-01-02] MEDS: QUEtiapine Fumarate 100 MG TABLET PO (16:52)
[2024-01-02 16:55] VITALS: BP 135/84; PULSE 75; RESP 18; TEMP 36.4; O2SAT 96
[2024-01-02] MEDS: methADONE HCl 20 MG/2 ML ORAL.CONC 35 MG PO (20:08)
[2024-01-02] MEDS: QUEtiapine Fumarate 400 MG TABLET PO (20:09)
[2024-01-02] MEDS: Doxazosin Mesylate 2 MG TABLET 4 MG PO (20:09)
[2024-01-02] MEDS: Nicotine Polacrilex 2 MG GUM BUCCAL (21:05)
[2024-01-03 06:30] VITALS: BP 115/76; PULSE 85; RESP 18; TEMP 36.3; O2SAT 98
[2024-01-03] MEDS: methADONE HCl 20 MG/2 ML ORAL.CONC 175 MG PO (08:23)
[2024-01-03] MEDS: Escitalopram Oxalate 20 MG TABLET PO (08:23)
[2024-01-03] MEDS: Lithium Carbonate 300 MG CAPSULE PO ×2 (08:24→20:31)
[2024-01-03] MEDS: QUEtiapine Fumarate 100 MG TABLET PO ×2 (08:24→12:47)
[2024-01-03] MEDS: Omeprazole 20 MG CAPSULE.DR PO (08:24)
[2024-01-03] MEDS: Cyclobenzaprine HCl 10 MG TABLET PO ×3 (09:18→20:31)
--- NOTE | 2024-01-03 11:08 | PC.NURSE ---
Nurse to nurse report give to RN Inpatient Psych.
[2024-01-03 12:04] VITALS: BP 147/80; PULSE 76; RESP 18; TEMP 36.1; O2SAT 97
[2024-01-03 12:05] VITALS: BMI 34.0
[2024-01-03] MEDS: Acetaminophen 325 MG TABLET 650 MG PO (12:47)
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
[2024-01-03 20:00] VITALS: BP 134/73; PULSE 80; TEMP 36.2; O2SAT 95
[2024-01-03 20:31] VITALS: BP 134/73
[2024-01-03] MEDS: Doxazosin Mesylate 2 MG TABLET 4 MG PO (20:31)
[2024-01-03] MEDS: QUEtiapine Fumarate 400 MG TABLET PO (20:31)
[2024-01-03] MEDS: methADONE HCl 20 MG/2 ML ORAL.CONC 35 MG PO (20:32)
[2024-01-04] MEDS: Omeprazole 20 MG CAPSULE.DR PO (05:32)
[2024-01-04] MEDS: hydrOXYzine HCL 50 MG TABLET PO (05:32)
[2024-01-04] MEDS: methADONE HCl 20 MG/2 ML ORAL.CONC 175 MG PO (07:45)
[2024-01-04 07:49] LABS: Estimated Average Glucose 105 mg/dL; Hemoglobin A1c % 5.3 % (<6.0)
[2024-01-04 07:53] VITALS: BP 137/76; PULSE 88; RESP 18; TEMP 36.3; O2SAT 98
[2024-01-04 08:01] LABS: Alanine Aminotransferase 56 U/L (0-40); Alkaline Phosphatase 101 U/L (39-117); Anion Gap 12 (12-20); Aspartate Amino Transferase 57 U/L (5-37); Bilirubin Total 0.3 mg/dL (0.0-1.0); Blood Urea Nitrogen 26 mg/dL (9-16); Calcium 9.7 mg/dL (8.4-10.2); Carbon Dioxide 25 mmol/L (22-29); Chloride 109 mmol/L (96-108); Cholesterol 163 mg/dL (<200); Creatinine Clr Calc Pharmacy 112.2; Estimated Glomerular Filt Rate > 60; Glucose Fasting 81 mg/dL (60-99); HDL Cholesterol 47 mg/dL (>40); LDL Cholesterol Calculated 88 mg/dL (<100); Sodium 142 mmol/L (135-145); Total Protein 7.4 g/dL (6.5-8.0); Triglycerides 142 mg/dL (<150)
[2024-01-04] MEDS: Cyclobenzaprine HCl 10 MG TABLET PO ×3 (08:13→20:14)
[2024-01-04] MEDS: Escitalopram Oxalate 20 MG TABLET PO (08:13)
[2024-01-04] MEDS: QUEtiapine Fumarate 100 MG TABLET PO ×2 (08:13→12:39)
[2024-01-04] MEDS: Lithium Carbonate 300 MG CAPSULE PO ×2 (08:13→20:14)
[2024-01-04 08:19] LABS: Free T4 (Free Thyroxine) 0.83 ng/dL (0.71-1.85); Thyroid Stimulating Hormone 3.52 uIU/mL (0.32-4.0)
[2024-01-04 08:30] LABS: Folate 9.4 ng/mL (> or = 4.0); Vitamin B12 608 pg/mL (200-900)
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
[2024-01-04 19:20] VITALS: BP 161/100; PULSE 96; TEMP 36.6; O2SAT 94
[2024-01-04 19:25] VITALS: BP 138/81; PULSE 94
[2024-01-04 19:30] VITALS: BP 142/75
--- NOTE | 2024-01-04 19:35 | PC.NURSE ---
Addendum entered by Daniela Hsu RN 01/04/24 19:46: Oncoming nurse updated Original Note: At approximately 1920 pt was seated in kitchen and complained to staff of dizziness, feeling lightheaded, and feeling like he was going to pass out. VS obtained. BP noted to be elevated. Pt alert and verbal. Fluids provided and cool compress placed to back of neck. Pt reported hx of seizures, and said that he had felt this way in the past following a seizure. Pt was assisted back to bed via wheelchair. Covering provider Dr. Maddox notified. Awaiting orders.
[2024-01-04 20:00] VITALS: BP 148/97; PULSE 82; RESP 18; TEMP 36.6; O2SAT 94
[2024-01-04] MEDS: methADONE HCl 20 MG/2 ML ORAL.CONC 35 MG PO (20:13)
[2024-01-04] MEDS: Doxazosin Mesylate 2 MG TABLET 4 MG PO (20:14)
[2024-01-04] MEDS: QUEtiapine Fumarate 400 MG TABLET PO (20:14)
[2024-01-04] MEDS: traZODone HCL 50 MG TABLET PO (20:14)
[2024-01-04] MEDS: Magnesium Hydrox/Alum Hydrox 30 ML ORAL.SUSP PO (20:20)
[2024-01-05] MEDS: Omeprazole 20 MG CAPSULE.DR PO (06:31)
[2024-01-05] MEDS: Nicotine Polacrilex 2 MG GUM 4 MG BUCCAL (06:33)
[2024-01-05] MEDS: hydrOXYzine HCL 50 MG TABLET PO (06:33)
[2024-01-05 07:38] VITALS: BP 121/89; PULSE 77; RESP 16; TEMP 36.2; O2SAT 94
[2024-01-05] MEDS: methADONE HCl 20 MG/2 ML ORAL.CONC 175 MG PO (07:39)
[2024-01-05] MEDS: Lithium Carbonate 300 MG CAPSULE PO ×2 (08:16→20:29)
[2024-01-05] MEDS: Escitalopram Oxalate 20 MG TABLET PO (08:16)
[2024-01-05] MEDS: QUEtiapine Fumarate 100 MG TABLET PO ×2 (08:16→12:10)
[2024-01-05] MEDS: Cyclobenzaprine HCl 10 MG TABLET PO ×3 (08:16→20:29)
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
[2024-01-05 20:00] VITALS: BP 121/57; PULSE 83; RESP 15; TEMP 36.4; O2SAT 96
[2024-01-05] MEDS: methADONE HCl 20 MG/2 ML ORAL.CONC 35 MG PO (20:27)
[2024-01-05] MEDS: Doxazosin Mesylate 2 MG TABLET 4 MG PO (20:28)
[2024-01-05] MEDS: QUEtiapine Fumarate 400 MG TABLET PO (20:28)
[2024-01-05] MEDS: traZODone HCL 50 MG TABLET PO (20:30)
[2024-01-06] MEDS: Omeprazole 20 MG CAPSULE.DR PO (07:08)
[2024-01-06] MEDS: methADONE HCl 20 MG/2 ML ORAL.CONC 175 MG PO (07:48)
[2024-01-06 08:00] VITALS: BP 125/80; PULSE 103; RESP 16; TEMP 36.3; O2SAT 98
[2024-01-06] MEDS: Escitalopram Oxalate 20 MG TABLET PO (08:26)
[2024-01-06] MEDS: QUEtiapine Fumarate 100 MG TABLET PO ×2 (08:26→11:34)
[2024-01-06] MEDS: Lithium Carbonate 300 MG CAPSULE PO (08:26)
[2024-01-06] MEDS: Cyclobenzaprine HCl 10 MG TABLET PO ×3 (08:27→20:45)
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
[2024-01-06] MEDS: Magnesium Hydrox/Alum Hydrox 30 ML ORAL.SUSP PO ×2 (11:34→17:53)
[2024-01-06] MEDS: Famotidine 20 MG TABLET PO (13:03)
[2024-01-06] MEDS: Calcium Carbonate 750 MG TAB.CHEW PO (13:58)
[2024-01-06 20:00] VITALS: BP 115/70; PULSE 88; RESP 18; TEMP 35.7; O2SAT 96
[2024-01-06 20:44] VITALS: BP 115/70
[2024-01-06] MEDS: Doxazosin Mesylate 2 MG TABLET 4 MG PO (20:44)
[2024-01-06] MEDS: QUEtiapine Fumarate 400 MG TABLET PO (20:44)
[2024-01-06] MEDS: traZODone HCL 50 MG TABLET PO (20:45)
[2024-01-06] MEDS: methADONE HCl 20 MG/2 ML ORAL.CONC 35 MG PO (20:45)
[2024-01-07] MEDS: methADONE HCl 20 MG/2 ML ORAL.CONC 175 MG PO (07:43)
[2024-01-07] MEDS: Famotidine 20 MG TABLET PO (09:00)
[2024-01-07] MEDS: Omeprazole 20 MG CAPSULE.DR PO (09:00)
[2024-01-07] MEDS: QUEtiapine Fumarate 100 MG TABLET PO ×2 (09:00→11:32)
[2024-01-07] MEDS: Escitalopram Oxalate 20 MG TABLET PO (09:00)
[2024-01-07] MEDS: Cyclobenzaprine HCl 10 MG TABLET PO ×3 (09:00→20:27)
[2024-01-07 09:09] VITALS: BP 137/73; PULSE 83; RESP 18; TEMP 36.2; O2SAT 96
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
[2024-01-07 20:00] VITALS: BP 127/82; PULSE 96; RESP 18; TEMP 36.4; O2SAT 93
[2024-01-07] MEDS: methADONE HCl 20 MG/2 ML ORAL.CONC 35 MG PO (20:24)
[2024-01-07 20:25] VITALS: BP 127/62
[2024-01-07] MEDS: Doxazosin Mesylate 2 MG TABLET 4 MG PO (20:25)
[2024-01-07] MEDS: QUEtiapine Fumarate 400 MG TABLET PO (20:26)
[2024-01-07] MEDS: Lithium Carbonate ER 450 MG TABLET.ER 900 MG PO (20:26)
[2024-01-07] MEDS: traZODone HCL 50 MG TABLET PO (20:58)
--- NOTE | 2024-01-07 21:16 | PC.NURSE ---
35 Methadone administered tonight by Rima MIKE, administration of the 35mg and the 0.5mg waste witnessed by Myself, Moustapha Renee. Both RN's present throughout waste and administration.
[2024-01-07] MEDS: Magnesium Hydrox/Alum Hydrox 30 ML ORAL.SUSP PO (21:30)
[2024-01-08] MEDS: Omeprazole 20 MG CAPSULE.DR PO (06:43)
[2024-01-08] MEDS: methADONE HCl 20 MG/2 ML ORAL.CONC 175 MG PO (07:45)
[2024-01-08 08:00] VITALS: BP 107/75; PULSE 74; RESP 16; TEMP 36.2; O2SAT 96
[2024-01-08] MEDS: Famotidine 20 MG TABLET PO (08:38)
[2024-01-08] MEDS: Cyclobenzaprine HCl 10 MG TABLET PO ×3 (08:38→20:34)
[2024-01-08] MEDS: Escitalopram Oxalate 20 MG TABLET PO (08:38)
[2024-01-08] MEDS: QUEtiapine Fumarate 100 MG TABLET PO ×2 (08:39→12:34)
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
[2024-01-08] MEDS: hydrOXYzine HCL 50 MG TABLET PO (18:52)
[2024-01-08 19:49] VITALS: BP 171/98; PULSE 83; RESP 14; TEMP 36.5; O2SAT 97
[2024-01-08] MEDS: QUEtiapine Fumarate 400 MG TABLET PO (20:34)
[2024-01-08] MEDS: Doxazosin Mesylate 2 MG TABLET 4 MG PO (20:34)
[2024-01-08] MEDS: Lithium Carbonate ER 450 MG TABLET.ER 900 MG PO (20:34)
[2024-01-08] MEDS: methADONE HCl 20 MG/2 ML ORAL.CONC 35 MG PO (20:35)
[2024-01-08] MEDS: traZODone HCL 50 MG TABLET PO (20:35)
[2024-01-09] MEDS: Omeprazole 20 MG CAPSULE.DR PO (06:19)
[2024-01-09] MEDS: methADONE HCl 20 MG/2 ML ORAL.CONC 175 MG PO (07:50)
[2024-01-09 08:00] VITALS: BP 155/65; PULSE 81; RESP 17; TEMP 36.3; O2SAT 95
[2024-01-09] MEDS: Famotidine 20 MG TABLET PO (08:41)
[2024-01-09] MEDS: QUEtiapine Fumarate 100 MG TABLET PO ×2 (08:41→12:57)
[2024-01-09] MEDS: Cyclobenzaprine HCl 10 MG TABLET PO ×3 (08:41→20:07)
[2024-01-09] MEDS: Escitalopram Oxalate 20 MG TABLET PO (08:42)
[2024-01-09] MEDS: Dextroamphetamine/Amphetamine XR 10 MG CAP.ER.24H PO (08:42)
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
[2024-01-09 20:00] VITALS: BP 128/60; PULSE 110; RESP 18; TEMP 36.1; O2SAT 99
[2024-01-09] MEDS: methADONE HCl 20 MG/2 ML ORAL.CONC 35 MG PO (20:06)
[2024-01-09] MEDS: Lithium Carbonate ER 450 MG TABLET.ER 900 MG PO (20:07)
[2024-01-09] MEDS: QUEtiapine Fumarate 400 MG TABLET PO (20:07)
[2024-01-09] MEDS: Doxazosin Mesylate 2 MG TABLET 4 MG PO (20:07)
[2024-01-09] MEDS: traZODone HCL 50 MG TABLET PO (20:09)
[2024-01-10] MEDS: methADONE HCl 20 MG/2 ML ORAL.CONC 175 MG PO (07:43)
[2024-01-10] MEDS: Omeprazole 20 MG CAPSULE.DR PO (07:47)
[2024-01-10 08:00] VITALS: BP 131/87; PULSE 93; RESP 16; TEMP 36.1; O2SAT 99
[2024-01-10] MEDS: Escitalopram Oxalate 20 MG TABLET PO (08:56)
[2024-01-10] MEDS: Dextroamphetamine/Amphetamine XR 10 MG CAP.ER.24H PO (08:56)
[2024-01-10] MEDS: Famotidine 20 MG TABLET PO (08:56)
[2024-01-10] MEDS: QUEtiapine Fumarate 100 MG TABLET PO ×2 (08:56→12:12)
[2024-01-10] MEDS: Cyclobenzaprine HCl 10 MG TABLET PO ×3 (08:56→20:33)
[2024-01-10] MEDS: hydrOXYzine HCL 25 MG TABLET PO (10:05)
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
[2024-01-10 20:00] VITALS: BP 107/78; PULSE 95; TEMP 36.1; O2SAT 97
[2024-01-10] MEDS: Lithium Carbonate ER 450 MG TABLET.ER 900 MG PO (20:31)
[2024-01-10] MEDS: methADONE HCl 20 MG/2 ML ORAL.CONC 35 MG PO (20:31)
[2024-01-10] MEDS: Doxazosin Mesylate 2 MG TABLET 4 MG PO (20:33)
[2024-01-10] MEDS: OXcarbazepine 300 MG TABLET PO (20:35)
[2024-01-10] MEDS: QUEtiapine Fumarate 400 MG TABLET PO (20:35)
[2024-01-10] MEDS: traZODone HCL 50 MG TABLET PO (20:35)
[2024-01-10] MEDS: hydrOXYzine HCL 50 MG TABLET PO (20:35)
[2024-01-10] MEDS: Magnesium Hydrox/Alum Hydrox 30 ML ORAL.SUSP PO (20:36)
[2024-01-11] MEDS: methADONE HCl 20 MG/2 ML ORAL.CONC 175 MG PO (07:52)
[2024-01-11 08:00] VITALS: BP 126/77; PULSE 95; RESP 17; TEMP 36.6; O2SAT 97
[2024-01-11] MEDS: QUEtiapine Fumarate 100 MG TABLET PO ×2 (08:53→15:11)
[2024-01-11] MEDS: Dextroamphetamine/Amphetamine XR 10 MG CAP.ER.24H PO (08:53)
[2024-01-11] MEDS: OXcarbazepine 300 MG TABLET PO ×2 (08:53→20:19)
[2024-01-11] MEDS: Escitalopram Oxalate 20 MG TABLET PO (08:53)
[2024-01-11] MEDS: Cyclobenzaprine HCl 10 MG TABLET PO ×3 (08:53→20:19)
[2024-01-11] MEDS: Famotidine 20 MG TABLET PO (08:53)
[2024-01-11] MEDS: Omeprazole 20 MG CAPSULE.DR PO (08:53)
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
[2024-01-11 12:02] VITALS: BP 116/89; PULSE 89; RESP 17; O2SAT 96
[2024-01-11 20:00] VITALS: BP 138/72; PULSE 78; TEMP 2.3; TEMP 36.2; O2SAT 95
[2024-01-11] MEDS: methADONE HCl 20 MG/2 ML ORAL.CONC 35 MG PO (20:18)
[2024-01-11] MEDS: QUEtiapine Fumarate 400 MG TABLET PO (20:19)
[2024-01-11] MEDS: Doxazosin Mesylate 2 MG TABLET 4 MG PO (20:19)
[2024-01-11] MEDS: Lithium Carbonate ER 450 MG TABLET.ER 900 MG PO (20:19)
[2024-01-11] MEDS: Acetaminophen 325 MG TABLET 650 MG PO (20:44)
[2024-01-11] MEDS: traZODone HCL 50 MG TABLET PO (20:45)
[2024-01-12] MEDS: Omeprazole 20 MG CAPSULE.DR PO (06:36)
[2024-01-12 07:43] LABS: Lithium 0.99 mmol/L (0.60-1.20)
[2024-01-12] MEDS: methADONE HCl 20 MG/2 ML ORAL.CONC 175 MG PO (07:47)
[2024-01-12 07:58] LABS: Anion Gap 15 (12-20); Blood Urea Nitrogen 18 mg/dL (9-16); Calcium 9.4 mg/dL (8.4-10.2); Carbon Dioxide 18 mmol/L (22-29); Chloride 107 mmol/L (96-108); Estimated Glomerular Filt Rate > 60; Glucose Random 106 mg/dL (60-115); Potassium 4.4 mmol/L (3.3-5.1); Sodium 136 mmol/L (135-145)
--- NOTE | 2024-01-12 08:04 | P.PNPSI_ITS ---
Subjective Subjective Date of Service: 01/12/24 Reason For Visit: Depression s/p suicide attempt opiate Use disorder Subjective Notes: Conditional Voluntary Interim History: Patient was seen and discussed in rounds today. Records and plans were reviewed. He has been stable, endorsing depression and anxiety. Affect is flat. Has been med compliant. No complaints or side effects on Trileptal 300 mg b.i.d. which I did not increase today but may be considered tomorrow. Eating and sleeping adequately. No SI. Review of Systems Review of Systems Yes all other systems are reviewed and are negative Mental Status Exam Mental Status Exam Narrative: In today's visit he is alert, pleasant and cooperative. Normal speech. Little eye contact. Affect is appropriate and constricted. No acute signs of psychosis periods moderate anxiety present. No SI. No abnormalities of gait. Able to move all limbs. Cognitively is grossly intact. Judgment is intact Diagnostics Vital Signs (24Hr): Vital Signs - 24 hr 01/11/24 12:02 01/11/24 20:00 Temperature 36.2 F L Pulse Rate 89 78 Respiratory Rate 17 Blood Pressure 116/89 138/72 Pulse Oximetry 96 95 Oxygen Delivery Method Room Air Room Air BMI result Body Mass Index 34.0 Labs 01/02/24 08:25 01/12/24 07:28 Labs: Laboratory Results - last 48 hr 01/12/24 07:28 Sodium 136 Potassium 4.4 Chloride 107 Carbon Dioxide 18 L Anion Gap 15 BUN 18 H Creatinine 1.07 Estim Creat Clear Calc 107.0 Estimated GFR > 60 Random Glucose 106 Calcium 9.4 [place] 0.99 Imaging Radiology Impressions: ITS Impressions Cervical Spine CT 01/01/24 10:56 IMPRESSION: Unremarkable examination. Fleischner guidelines were followed. Head CT 01/01/24 10:56 IMPRESSION: No acute intracranial pathology. Thoracic Spine X-Ray 01/01/24 11:03 IMPRESSION: 1. Mild multilevel degenerative changes in the thoracic spine most notable in the [id number] spine. 2. Mild anterior loss of height of a olh-ua-tlcpa thoracic vertebral body of indeterminate age and etiology. 3. Limited visualization particularly of the upper thoracic spine due to overlying bony and soft tissue structures. 4. Additional imaging with CT scan or MRI should be considered for better visualization as these modalities are much more sensitive for detection of fracture or other underlying pathology. This study was presented today January 01, 2024 for interpretation. Stat results provided at this time as requested by referring provider. Medications Medications Current Medications Acetaminophen (Acetaminophen 325 Mg Tablet) 650 mg PO Q6H PRN PRN Reason: Headache/Pain Mild Scale (1-3) Last Admin: 01/11/24 20:44 Dose: 650 mg Al Hydroxide/Mg Hydroxide (Magnesium Hydrox/Alum Hydrox 30 Ml Oral.Susp) 30 ml PO Q6H PRN PRN Reason: Heartburn/Nausea Last Admin: 01/10/24 20:36 Dose: 30 ml Amphetamine/Dextroamphetamine (Dextroamphetamine/Amphetamine Xr 10 Mg Cap.Er.24h) 10 mg PO DAILY [facility] Last Admin: 01/11/24 08:53 Dose: 10 mg Cyclobenzaprine HCl (Cyclobenzaprine Hcl 10 Mg Tablet) 10 mg PO TID [facility] Last Admin: 01/11/24 20:19 Dose: 10 mg Doxazosin Mesylate (Doxazosin Mesylate 2 Mg Tablet) 4 mg PO BEDTIME [facility]; Protocol Last Admin: 01/11/24 20:19 Dose: 4 mg Escitalopram Oxalate (Escitalopram Oxalate 20 Mg Tablet) 20 mg PO DAILY [facility] Last Admin: 01/11/24 08:53 Dose: 20 mg Famotidine (Famotidine 20 Mg Tablet) 20 mg PO DAILY [facility] Last Admin: 01/11/24 08:53 Dose: 20 mg Fluticasone Propionate (Fluticasone Propionate Nasal 16 Gm [place]) 2 spray NOSTRIL-B DAILY PRN PRN Reason: nasal congestion Hydroxyzine HCl (Hydroxyzine Hcl 50 Mg Tablet) 50 mg PO BID PRN PRN Reason: Anxiety Last Admin: 01/10/24 20:35 Dose: 50 mg [place] Carbonate ([place] Carbonate Er 450 Mg Tablet.Er) 900 mg PO BEDTIME [facility] Last Admin: 01/11/24 20:19 Dose: 900 mg Magnesium Hydroxide (Milk Of Magnesia 30 Ml Oral.Susp) 30 ml PO DAILY PRN PRN Reason: Constipation Melatonin (Melatonin 3 Mg Tablet) 3 mg PO BEDTIME PRN PRN Reason: Sleep Methadone HCl (Methadone Hcl 20 Mg/2 Ml Oral.Conc) 175 mg PO DAILY [facility] Last Admin: 01/12/24 07:47 Dose: 175 mg Methadone HCl (Methadone Hcl 20 Mg/2 Ml Oral.Conc) 35 mg PO BEDTIME [facility] Last Admin: 01/11/24 20:18 Dose: 35 mg Nicotine (Nicotine 21 Mg Patch.Td24) 21 mg TRANSDERMA DAILY PRN PRN Reason: nicotine cravings Nicotine Polacrilex (Nicotine Polacrilex 2 Mg Gum) 2 mg BUCCAL QID PRN PRN Reason: Nicotine Cravings Last Admin: 01/02/24 21:05 Dose: 2 mg Nicotine Polacrilex (Nicotine Polacrilex 2 Mg Gum) 4 mg BUCCAL Q2H PRN PRN Reason: Nicotine Cravings Last Admin: 01/05/24 06:33 Dose: 4 mg Omeprazole (Omeprazole 20 Mg Capsule.Dr) 20 mg PO DAILY@0630 [facility] Last Admin: 01/12/24 06:36 Dose: 20 mg Oxcarbazepine (Oxcarbazepine 300 Mg Tablet) 300 mg PO BID [facility] Last Admin: 01/11/24 20:19 Dose: 300 mg Quetiapine Fumarate (Quetiapine Fumarate 100 Mg Tablet) 100 mg PO BID@0800,1200 [facility] Last Admin: 01/11/24 15:11 Dose: 100 mg Quetiapine Fumarate (Quetiapine Fumarate 400 Mg Tablet) 400 mg PO BEDTIME [facility] Last Admin: 01/11/24 20:19 Dose: 400 mg Trazodone HCl (Trazodone Hcl 50 Mg Tablet) 50 mg PO BEDTIME MRX1 PRN PRN Reason: Insomnia Last Admin: 01/11/24 20:45 Dose: 50 mg Allergies Allergies Allergy/AdvReac Type Severity Reaction Status Date / Time Penicillins [PENICILLINS] Allergy Severe ANAPHYLACTI Verified 01/01/24 08:52 C codeine [CODEINE] Allergy Mild RASH Verified 01/01/24 08:52 Assessment & Plan Assessment & Plan (1) Opiate abuse, continuous: Status: Acute Code(s): F11.10 - Opioid abuse, uncomplicated (2) Mood disorder: Status: Acute Code(s): F39 - Unspecified mood [affective] disorder Assessment and Plan: 01/10: Continue current regimen and planslan 01/11: Continue current regimen and planslan Reason for continued inpatient stay Substantial Risk for: med/psych decompensation Time Spent With Patient Time: Total time managing care of this patient today ____ minutes.
[2024-01-12 08:15] LABS: TSH reflex Free T4 4.84 uIU/mL (0.32-4.0)
[2024-01-12 08:17] VITALS: BP 130/70; PULSE 97; RESP 16; TEMP 36.8; O2SAT 97
[2024-01-12] MEDS: Cyclobenzaprine HCl 10 MG TABLET PO ×3 (08:28→20:18)
[2024-01-12] MEDS: OXcarbazepine 300 MG TABLET PO ×2 (08:28→20:17)
[2024-01-12] MEDS: Escitalopram Oxalate 20 MG TABLET PO (08:28)
[2024-01-12] MEDS: QUEtiapine Fumarate 100 MG TABLET PO ×2 (08:28→13:01)
[2024-01-12] MEDS: Famotidine 20 MG TABLET PO (08:28)
[2024-01-12 08:48] LABS: Free T4 (Free Thyroxine) 0.72 ng/dL (0.71-1.85)
[2024-01-12] MEDS: hydrOXYzine HCL 50 MG TABLET PO (18:02)
[2024-01-12 20:00] VITALS: BP 129/92; PULSE 101; RESP 16; TEMP 36.4; O2SAT 96
[2024-01-12] MEDS: Lithium Carbonate ER 450 MG TABLET.ER 900 MG PO (20:17)
[2024-01-12] MEDS: QUEtiapine Fumarate 400 MG TABLET PO (20:17)
[2024-01-12] MEDS: methADONE HCl 20 MG/2 ML ORAL.CONC 35 MG PO (20:17)
[2024-01-12] MEDS: Doxazosin Mesylate 2 MG TABLET 4 MG PO (20:17)
[2024-01-12] MEDS: Magnesium Hydrox/Alum Hydrox 30 ML ORAL.SUSP PO (20:20)
[2024-01-13] MEDS: Omeprazole 20 MG CAPSULE.DR PO (06:42)
[2024-01-13] MEDS: methADONE HCl 20 MG/2 ML ORAL.CONC 175 MG PO (07:47)
[2024-01-13 08:00] VITALS: BP 121/69; PULSE 94; RESP 16; TEMP 36.8; O2SAT 96
[2024-01-13] MEDS: QUEtiapine Fumarate 100 MG TABLET PO ×2 (08:26→18:11)
[2024-01-13] MEDS: Escitalopram Oxalate 20 MG TABLET PO (08:26)
[2024-01-13] MEDS: Dextroamphetamine/Amphetamine XR 10 MG CAP.ER.24H PO (08:27)
[2024-01-13] MEDS: OXcarbazepine 300 MG TABLET PO ×2 (08:27→20:30)
[2024-01-13] MEDS: Cyclobenzaprine HCl 10 MG TABLET PO ×3 (08:27→20:30)
[2024-01-13] MEDS: Famotidine 20 MG TABLET PO (08:27)
[2024-01-13] MEDS: Magnesium Hydrox/Alum Hydrox 30 ML ORAL.SUSP PO (18:16)
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
[2024-01-13 20:00] VITALS: BP 134/82; PULSE 104; RESP 16; TEMP 36.3; O2SAT 94
[2024-01-13] MEDS: methADONE HCl 20 MG/2 ML ORAL.CONC 35 MG PO (20:29)
[2024-01-13 20:30] VITALS: BP 100/62
[2024-01-13] MEDS: Lithium Carbonate ER 450 MG TABLET.ER 900 MG PO (20:30)
[2024-01-13] MEDS: QUEtiapine Fumarate 400 MG TABLET PO (20:30)
[2024-01-13] MEDS: Doxazosin Mesylate 2 MG TABLET 4 MG PO (20:30)
[2024-01-13] MEDS: traZODone HCL 50 MG TABLET PO (20:33)
[2024-01-14] MEDS: Omeprazole 20 MG CAPSULE.DR PO (07:04)
[2024-01-14] MEDS: methADONE HCl 20 MG/2 ML ORAL.CONC 175 MG PO (07:45)
[2024-01-14 08:21] VITALS: BP 125/81; PULSE 95; RESP 16; TEMP 36; O2SAT 96
[2024-01-14] MEDS: QUEtiapine Fumarate 100 MG TABLET PO ×2 (08:49→12:56)
[2024-01-14] MEDS: OXcarbazepine 300 MG TABLET PO ×2 (08:49→20:40)
[2024-01-14] MEDS: Dextroamphetamine/Amphetamine XR 10 MG CAP.ER.24H PO (08:49)
[2024-01-14] MEDS: Famotidine 20 MG TABLET PO (08:49)
[2024-01-14] MEDS: Cyclobenzaprine HCl 10 MG TABLET PO ×3 (08:49→20:40)
[2024-01-14] MEDS: Escitalopram Oxalate 20 MG TABLET PO (08:49)
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
[2024-01-14] MEDS: Magnesium Hydrox/Alum Hydrox 30 ML ORAL.SUSP PO (16:47)
[2024-01-14] MEDS: hydrOXYzine HCL 50 MG TABLET PO ×2 (18:05→20:41)
[2024-01-14 20:00] VITALS: BP 120/75; PULSE 87; RESP 16; TEMP 36.4; O2SAT 96
[2024-01-14] MEDS: QUEtiapine Fumarate 400 MG TABLET PO (20:40)
[2024-01-14] MEDS: traZODone HCL 50 MG TABLET PO (20:40)
[2024-01-14] MEDS: Doxazosin Mesylate 2 MG TABLET 4 MG PO (20:40)
[2024-01-14] MEDS: Lithium Carbonate ER 450 MG TABLET.ER 900 MG PO (20:41)
[2024-01-14] MEDS: methADONE HCl 20 MG/2 ML ORAL.CONC 35 MG PO (20:42)
[2024-01-15] MEDS: Omeprazole 20 MG CAPSULE.DR PO (07:01)
[2024-01-15 08:00] VITALS: BP 109/58; PULSE 83; RESP 18; TEMP 36.4; O2SAT 96
[2024-01-15] MEDS: methADONE HCl 20 MG/2 ML ORAL.CONC 175 MG PO (08:10)
[2024-01-15] MEDS: Cyclobenzaprine HCl 10 MG TABLET PO ×3 (08:57→20:30)
[2024-01-15] MEDS: OXcarbazepine 300 MG TABLET PO ×2 (08:57→20:30)
[2024-01-15] MEDS: Famotidine 20 MG TABLET PO (08:57)
[2024-01-15] MEDS: Escitalopram Oxalate 20 MG TABLET PO (08:57)
[2024-01-15] MEDS: Dextroamphetamine/Amphetamine XR 10 MG CAP.ER.24H PO (08:57)
[2024-01-15] MEDS: QUEtiapine Fumarate 100 MG TABLET PO ×2 (08:57→13:30)
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
[2024-01-15 20:00] VITALS: BP 113/68; PULSE 87; RESP 16; TEMP 36.5; O2SAT 94
[2024-01-15] MEDS: methADONE HCl 20 MG/2 ML ORAL.CONC 35 MG PO (20:27)
[2024-01-15] MEDS: traZODone HCL 50 MG TABLET PO (20:30)
[2024-01-15] MEDS: Doxazosin Mesylate 2 MG TABLET 4 MG PO (20:30)
[2024-01-15] MEDS: Lithium Carbonate ER 450 MG TABLET.ER 900 MG PO (20:30)
[2024-01-15] MEDS: QUEtiapine Fumarate 400 MG TABLET PO (20:30)
[2024-01-15] MEDS: hydrOXYzine HCL 50 MG TABLET PO (20:31)
[2024-01-16] MEDS: Omeprazole 20 MG CAPSULE.DR PO (06:55)
[2024-01-16] MEDS: methADONE HCl 20 MG/2 ML ORAL.CONC 175 MG PO (07:53)
[2024-01-16 08:00] VITALS: BP 124/77; PULSE 98; RESP 16; TEMP 36.5; O2SAT 95
[2024-01-16] MEDS: QUEtiapine Fumarate 100 MG TABLET PO ×2 (09:07→13:04)
[2024-01-16] MEDS: OXcarbazepine 300 MG TABLET PO ×2 (09:08→20:36)
[2024-01-16] MEDS: Dextroamphetamine/Amphetamine XR 10 MG CAP.ER.24H PO (09:08)
[2024-01-16] MEDS: Cyclobenzaprine HCl 10 MG TABLET PO ×2 (09:08→14:34)
[2024-01-16] MEDS: Famotidine 20 MG TABLET PO (09:08)
[2024-01-16] MEDS: Escitalopram Oxalate 20 MG TABLET PO (09:09)
[2024-01-16] MEDS: hydrOXYzine HCL 50 MG TABLET PO (09:13)
[2024-01-16 11:02] VITALS: BMI 35.0
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
[2024-01-16 20:00] VITALS: BP 157/101; PULSE 97; RESP 16; TEMP 36.4; O2SAT 95
[2024-01-16] MEDS: Lithium Carbonate ER 450 MG TABLET.ER 900 MG PO (20:36)
[2024-01-16] MEDS: methADONE HCl 20 MG/2 ML ORAL.CONC 35 MG PO (20:36)
[2024-01-16] MEDS: traZODone HCL 50 MG TABLET PO (20:36)
[2024-01-16] MEDS: Doxazosin Mesylate 2 MG TABLET 4 MG PO (20:37)
[2024-01-16] MEDS: QUEtiapine Fumarate 400 MG TABLET PO (20:37)
[2024-01-17] MEDS: Omeprazole 20 MG CAPSULE.DR PO (07:22)
[2024-01-17] MEDS: methADONE HCl 20 MG/2 ML ORAL.CONC 175 MG PO (07:58)
[2024-01-17 08:00] VITALS: BP 125/71; PULSE 97; RESP 16; TEMP 36.4; O2SAT 95
[2024-01-17] MEDS: Dextroamphetamine/Amphetamine XR 10 MG CAP.ER.24H 20 MG PO (08:47)
[2024-01-17] MEDS: Escitalopram Oxalate 20 MG TABLET PO (08:48)
[2024-01-17] MEDS: hydrOXYzine HCL 50 MG TABLET PO (08:48)
[2024-01-17] MEDS: OXcarbazepine 300 MG TABLET PO ×2 (08:48→20:30)
[2024-01-17] MEDS: Famotidine 20 MG TABLET PO (08:48)
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
[2024-01-17] MEDS: QUEtiapine Fumarate 100 MG TABLET PO (12:03)
[2024-01-17 20:00] VITALS: BP 132/73; PULSE 89; RESP 20; TEMP 36.6; O2SAT 97
[2024-01-17] MEDS: methADONE HCl 20 MG/2 ML ORAL.CONC 35 MG PO (20:28)
[2024-01-17] MEDS: Doxazosin Mesylate 2 MG TABLET 4 MG PO (20:29)
[2024-01-17] MEDS: Lithium Carbonate ER 450 MG TABLET.ER 900 MG PO (20:29)
[2024-01-17] MEDS: traZODone HCL 50 MG TABLET PO (20:29)
[2024-01-17] MEDS: Cyclobenzaprine HCl 10 MG TABLET PO (20:30)
[2024-01-17] MEDS: QUEtiapine Fumarate 100 MG TABLET 500 MG PO (20:31)
[2024-01-18] MEDS: methADONE HCl 20 MG/2 ML ORAL.CONC 175 MG PO (07:45)
[2024-01-18 08:00] VITALS: BP 145/75; PULSE 77; RESP 16; TEMP 36.6; O2SAT 97
[2024-01-18] MEDS: Famotidine 20 MG TABLET PO (08:35)
[2024-01-18] MEDS: OXcarbazepine 300 MG TABLET PO ×2 (08:35→21:17)
[2024-01-18] MEDS: Dextroamphetamine/Amphetamine XR 10 MG CAP.ER.24H 20 MG PO (08:35)
[2024-01-18] MEDS: Escitalopram Oxalate 20 MG TABLET PO (08:36)
[2024-01-18] MEDS: Omeprazole 20 MG CAPSULE.DR PO (08:36)
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
[2024-01-18] MEDS: hydrOXYzine HCL 50 MG TABLET PO (12:11)
[2024-01-18] MEDS: QUEtiapine Fumarate 100 MG TABLET PO (12:11)
[2024-01-18 19:49] VITALS: BP 129/71; PULSE 103; RESP 16; TEMP 36.6; O2SAT 100
[2024-01-18] MEDS: methADONE HCl 20 MG/2 ML ORAL.CONC 35 MG PO (21:12)
[2024-01-18] MEDS: Doxazosin Mesylate 2 MG TABLET 4 MG PO (21:16)
[2024-01-18] MEDS: traZODone HCL 50 MG TABLET PO (21:17)
[2024-01-18] MEDS: Cyclobenzaprine HCl 10 MG TABLET PO (21:17)
[2024-01-18] MEDS: QUEtiapine Fumarate 100 MG TABLET 500 MG PO (21:17)
[2024-01-18] MEDS: Lithium Carbonate ER 450 MG TABLET.ER 900 MG PO (21:22)
[2024-01-19] MEDS: Omeprazole 20 MG CAPSULE.DR PO (06:54)
[2024-01-19] MEDS: methADONE HCl 20 MG/2 ML ORAL.CONC 175 MG PO (08:06)
[2024-01-19 08:12] VITALS: BP 111/67; PULSE 82; RESP 18; TEMP 36.6; O2SAT 94
[2024-01-19] MEDS: Famotidine 20 MG TABLET PO (09:04)
[2024-01-19] MEDS: Escitalopram Oxalate 20 MG TABLET PO (09:04)
[2024-01-19] MEDS: OXcarbazepine 300 MG TABLET PO ×2 (09:04→20:48)
[2024-01-19] MEDS: Acetaminophen 325 MG TABLET 650 MG PO (09:04)
[2024-01-19] MEDS: QUEtiapine Fumarate 100 MG TABLET PO (12:18)
[2024-01-19] MEDS: Milk of Magnesia 30 ML ORAL.SUSP PO (12:42)
[2024-01-19 15:50] LABS: MANUAL DIFF FLAG NO
[2024-01-19 15:55] LABS: Basophils Absolute Auto 0.1 X10*3/uL (0.0-0.2); Basophils Percent Auto 0.5 % (0-2); Eosinophils Absolute Auto 0.2 X10*3/uL (0.0-0.4); Eosinophils Percent Auto 2.4 % (0-4); Hemoglobin 13.4 g/dl (14.0-18.0); Imm Gran Abs Auto 0.07 X10*3/uL (0.00-0.03); Imm Gran Pct Auto 0.8 % (0.0-0.4); Lymphocytes Absolute Auto 1.5 X10*3/uL (1.2-4.9); Lymphocytes Percent Auto 16.6 % (20-40); Mean Corpuscular HGB Conc 34.4 g/dl (31.0-36.0); Mean Corpuscular Hemoglobin 27.4 pg (27.0-33.0); Mean Corpuscular Volume 79.8 fL (80.0-98.0); Mean Platelet Volume 9.4 fL (9.4-12.4); Monocytes Absolute Auto 0.7 X10*3/uL (0.1-1.2); Monocytes Percent Auto 7.5 % (2-11); Neutrophils Absolute Auto 6.6 x10*3/uL (2.0-8.3); Neutrophils Percent Auto 72.2 % (45-73); Platelet Count 121 X10*3/uL (160-400); Red Blood Count 4.89 X10*6/uL (4.60-5.80); Red Cell Distribution Width 13.6 % (11.0-16.0); White Blood Count 9.2 X10*3/uL (4.8-10.8)
[2024-01-19 16:29] LABS: Alanine Aminotransferase 43 U/L (0-40); Albumin Level 3.7 g/dL (3.5-5.0); Alkaline Phosphatase 101 U/L (39-117); Anion Gap 16 (12-20); Aspartate Amino Transferase 40 U/L (5-37); Bilirubin Total 0.5 mg/dL (0.0-1.0); Blood Urea Nitrogen 17 mg/dL (9-16); C Reactive Protein 1.24 mg/dL (< or = 0.50); Calcium 9.2 mg/dL (8.4-10.2); Carbon Dioxide 21 mmol/L (22-29); Chloride 106 mmol/L (96-108); Creatinine Clr Calc Pharmacy 129.1; Estimated Glomerular Filt Rate > 60; Gamma Glutamyl Transpeptidase 74 U/L (11-51); Glucose Random 112 mg/dL (60-115); Lipase 17 U/L (8-78); Potassium 4.6 mmol/L (3.3-5.1); Sodium 138 mmol/L (135-145); Total Protein 6.9 g/dL (6.5-8.0)
[2024-01-19 20:00] VITALS: BP 130/79; PULSE 92; RESP 15; TEMP 36.8; O2SAT 95
[2024-01-19] MEDS: methADONE HCl 20 MG/2 ML ORAL.CONC 35 MG PO (20:44)
[2024-01-19] MEDS: Lithium Carbonate ER 450 MG TABLET.ER 900 MG PO (20:48)
[2024-01-19] MEDS: Doxazosin Mesylate 2 MG TABLET 4 MG PO (20:48)
[2024-01-19] MEDS: QUEtiapine Fumarate 100 MG TABLET 500 MG PO (20:48)
[2024-01-19] MEDS: hydrOXYzine HCL 50 MG TABLET PO (22:22)
[2024-01-19] MEDS: traZODone HCL 50 MG TABLET PO (22:22)
[2024-01-19] MEDS: Melatonin 3 MG TABLET PO (22:25)
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
[2024-01-20] MEDS: Omeprazole 20 MG CAPSULE.DR PO (06:57)
[2024-01-20] MEDS: methADONE HCl 20 MG/2 ML ORAL.CONC 175 MG PO (07:46)
[2024-01-20 08:00] VITALS: BP 121/76; PULSE 98; RESP 16; TEMP 36.4; O2SAT 96
[2024-01-20] MEDS: Cyclobenzaprine HCl 10 MG TABLET PO (08:31)
[2024-01-20] MEDS: Escitalopram Oxalate 20 MG TABLET PO (08:32)
[2024-01-20] MEDS: Famotidine 20 MG TABLET PO (08:32)
[2024-01-20] MEDS: OXcarbazepine 300 MG TABLET PO ×2 (08:32→20:40)
[2024-01-20] MEDS: polyethylene glycoL 3350 17 GM POWD.PACK PO ×2 (09:31→10:57)
[2024-01-20] MEDS: QUEtiapine Fumarate 100 MG TABLET PO (12:41)
[2024-01-20] MEDS: Naloxone HCl Nasal TAKE HOME 4 MG SPRAY 8 MG NOSTRILALT (12:42)
--- NOTE | 2024-01-20 14:37 | PM.EVENT ---
Event Note Date of Service: 01/20/24 Event Note: Consult placed to hospitalist service for evaluation of epigastric/left upper quadrant pain. The patient reports he has gone on for several days. He reports he has not had a bowel movement in 5 days. He describes the pain as sharp/stabbing and radiates into the chest with a burning sensation. He denies any nausea or vomiting. Will check KUB, suspect pain may be related to constipation. However he is also endorsing pain consistent with heartburn. Will administer Tums. As far as elevated LFTs, they have trended down and GGT is in line with this. CRP is nonspecific and can be followed up with PCP. Recommend continuing bowel regimen. Will also add dulcolax x1 Time Spent With Patient Time: Total time managing care of this patient today ____ minutes.
[2024-01-20] MEDS: Calcium Carbonate 750 MG TAB.CHEW 1500 MG PO (14:51)
[2024-01-20] MEDS: bisacodyL 10 MG SUPP.RECT PR (14:52)
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
[2024-01-20 20:00] VITALS: BP 180/100; PULSE 100; RESP 18; TEMP 36.4; O2SAT 96
[2024-01-20] MEDS: methADONE HCl 20 MG/2 ML ORAL.CONC 35 MG PO (20:39)
[2024-01-20] MEDS: QUEtiapine Fumarate 100 MG TABLET 500 MG PO (20:40)
[2024-01-20 20:41] VITALS: BP 181/104
[2024-01-20] MEDS: Doxazosin Mesylate 2 MG TABLET 4 MG PO (20:41)
[2024-01-20] MEDS: Lithium Carbonate ER 450 MG TABLET.ER 900 MG PO (20:41)
[2024-01-21] MEDS: Omeprazole 20 MG CAPSULE.DR PO (07:02)
[2024-01-21] MEDS: methADONE HCl 20 MG/2 ML ORAL.CONC 175 MG PO (07:52)
[2024-01-21 08:00] VITALS: BP 122/68; PULSE 105; RESP 18; TEMP 36.4; O2SAT 97
[2024-01-21] MEDS: OXcarbazepine 300 MG TABLET PO (08:30)
[2024-01-21] MEDS: Escitalopram Oxalate 20 MG TABLET PO (08:31)
[2024-01-21] MEDS: Famotidine 20 MG TABLET PO (08:31)
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
== END 2024-01-21 11:34 | disposition home or self-care (01) | DRG 753 ==
LOC: HO.ED 09:56 → HO.PM5 01-03 11:05
PROVIDERS: Admitting Provider Clinical Nurse Specialist Psychiatric/Mental Health, Adult; Emergency Provider Emergency Medicine; Visit Provider Psychiatry & Neurology Psychiatry
DX: F31.9 Bipolar disorder, unspecified (principal); F11.20 Opioid dependence, uncomplicated; F17.210 Nicotine dependence, cigarettes, uncomplicated; K59.00 Constipation, unspecified; Z71.6 Tobacco abuse counseling; F43.10 Post-traumatic stress disorder, unspecified; F90.9 Attention-deficit hyperactivity disorder, unspecified type; Z91.51 Personal history of suicidal behavior; Z59.02 Unsheltered homelessness; Z79.899 Other long term (current) drug therapy
CPT/HCPCS: 36415; 70450; 72072; 72125; 74018; 80048; 80053; 80061; 80076; 80143; 80164; 80178; 80179; 80307; 81003; 82607; 82746; 82977; 83036; 83690; 83735; 84439; 84443; 85025; 86140; 93005; 99285; S9485

== ENCOUNTER → 2024-01-02 08:26 | Outpatient (BNV) | payer MEDICAID, SELFPAY | PROVIDERS: Emergency Provider Emergency Medicine; Visit Provider Internal Medicine Cardiovascular Disease | DX: R94.31 Abnormal electrocardiogram [ECG] [EKG] (principal) | CPT/HCPCS: 93010 ==

== ENCOUNTER → 2024-01-03 11:01 | Outpatient (BNV) | payer OTHER, SELFPAY | PROVIDERS: Admitting Provider Clinical Nurse Specialist Psychiatric/Mental Health, Adult; Emergency Provider Emergency Medicine; Visit Provider Psychiatry & Neurology Psychiatry | DX: F31.4 Bipolar disorder, current episode depressed, severe, without psychotic features (principal); F11.10 Opioid abuse, uncomplicated; F43.11 Post-traumatic stress disorder, acute; F90.9 Attention-deficit hyperactivity disorder, unspecified type | CPT/HCPCS: 99231; 99232 ==

== ENCOUNTER 2024-02-07 14:43 | Emergency (ER) | payer MEDICAID, SELFPAY ==
[2024-02-07 14:53] VITALS: BP 116/66; BP 130/90; PULSE 76; PULSE 80; RESP 16; TEMP 36.6; O2SAT 87; O2SAT 96; BMI 31.4
--- NOTE | 2024-02-07 15:01 | ECG_ITS ---
Test Reason : SEIZURE Blood Pressure : / mmHG Vent. Rate : 079 BPM Atrial Rate : 079 BPM P-R Int : 178 ms QRS Dur : 098 ms QT Int : 416 ms P-R-T Axes : 038 024 057 degrees QTc Int : 477 ms Normal sinus rhythm Normal ECG When compared with ECG of 02-JAN-2024 15:45, No significant change was found Referred By: Generic ED Physician Electronically Signed By:MARC LINARES
--- NOTE | 2024-02-07 15:10 | MHC.EDTECH ---
Pt changed over into a hospital gown and placed on a toys inspector. Seizure pads placed on stretcher railings. EKG completed and handed to a provider
[2024-02-07 15:49] LABS: MANUAL DIFF FLAG NO
[2024-02-07 15:57] LABS: Basophils Percent Auto 0.7 % (0-2); Eosinophils Absolute Auto 0.1 X10*3/uL (0.0-0.4); Eosinophils Percent Auto 2.3 % (0-4); Hematocrit 36.8 % (42.0-52.0); Hemoglobin 12.5 g/dl (14.0-18.0); Imm Gran Abs Auto 0.02 X10*3/uL (0.00-0.03); Imm Gran Pct Auto 0.3 % (0.0-0.4); Lymphocytes Absolute Auto 1.6 X10*3/uL (1.2-4.9); Lymphocytes Percent Auto 28.5 % (20-40); Mean Corpuscular Hemoglobin 27.8 pg (27.0-33.0); Mean Corpuscular Volume 81.8 fL (80.0-98.0); Mean Platelet Volume 8.9 fL (9.4-12.4); Monocytes Absolute Auto 0.5 X10*3/uL (0.1-1.2); Neutrophils Absolute Auto 3.4 x10*3/uL (2.0-8.3); Neutrophils Percent Auto 60.2 % (45-73); Platelet Count 152 X10*3/uL (160-400); Red Cell Distribution Width 13.8 % (11.0-16.0); White Blood Count 5.7 X10*3/uL (4.8-10.8)
[2024-02-07 16:12] LABS: Alanine Aminotransferase 39 U/L (0-40); Albumin Level 3.5 g/dL (3.5-5.0); Alkaline Phosphatase 80 U/L (39-117); Anion Gap 10 (12-20); Aspartate Amino Transferase 32 U/L (5-37); Bilirubin Total 0.3 mg/dL (0.0-1.0); Blood Urea Nitrogen 21 mg/dL (9-16); Calcium 8.8 mg/dL (8.4-10.2); Carbon Dioxide 27 mmol/L (22-29); Chloride 109 mmol/L (96-108); Creatinine Clr Calc Pharmacy 115.8; Estimated Glomerular Filt Rate > 60; Glucose Random 98 mg/dL (60-115); Potassium 4.3 mmol/L (3.3-5.1); Sodium 142 mmol/L (135-145); Total Protein 6.3 g/dL (6.5-8.0)
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
[2024-02-07 16:21] LABS: Troponin-I High Sensitivity < 2.7 ng/L (<3.5-35.0)
[2024-02-07 16:31] VITALS: BP 116/66; PULSE 68; RESP 12; TEMP 36.6; O2SAT 96
[2024-02-07 16:55] LABS: Valproate < 12.5 mcg/mL (50.0-100.0)
--- NOTE | 2024-02-07 17:36 | PC.NURSE ---
condom cath placed on pt to obtain urine sample
[2024-02-07 18:46] LABS: Ethanol < 10 mg/dL
[2024-02-07 18:50] VITALS: BP 115/70; PULSE 72; RESP 13; TEMP 36.6; O2SAT 92
--- NOTE | 2024-02-07 20:10 | PC.NURSE ---
Pt awake and drowsy with [facility] staff at the bedside. Requesting food. Food provider per provider. Pt is unable to provide urine sample at this time. Pt encouraged to provide sample. Condom cath in place. Denies any pain at this time. Monitoring is ongoing.
[2024-02-07 21:15] VITALS: BP 142/82; PULSE 60; RESP 17; TEMP 36.8; O2SAT 95
[2024-02-07 21:25] LABS: Appearance Urine Clear; Color Urine Yellow; Glucose Urine UA Negative (Negative); Leukocyte Esterase Urine Negative (Negative); Nitrite Urine Negative (Negative); Urine Blood Negative (Negative); Urine Ketones Negative (Negative); Urine Protein Negative (Neg-Trace)
[2024-02-07 21:36] LABS: Amphetamine Screen Urine Not Detected (Not Detect); Barbiturates, Urine Not Detected (Not Detect); Benzodiazepines Screen Urine Not Detected (Not Detect); Buprenorphine Scr Not Detected (Not Detect); Cannabinoid Screen Urine Not Detected (Not Detect); Cocaine Screen Urine Not Detected (Not Detect); Fentanyl, urine POSITIVE (Not Detect); Methadone Screen, Urine Positive (Not Detect); Opiate Screen Urine Not Detected (Not Detect); Oxycodone Screen Urine Not Detected (Not Detect); Phencyclidine Screen Urine Not Detected (Not Detect)
[2024-02-07 23:33] VITALS: BP 116/66; PULSE 74; RESP 16; O2SAT 94
[2024-02-08] VITALS (12 sets, daily range): BP systolic 103–139; BP diastolic 56–108; PULSE 72–104; RESP 14–30; TEMP 36.2; O2SAT 94–100
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
[2024-02-08] MEDS: LORazepam 2 MG/ML VIAL IM (01:20)
[2024-02-08] MEDS: Haloperidol Lactate 5 MG/ML VIAL 10 MG IM (01:20)
[2024-02-08] MEDS: diphenhydrAMINE HCL 50 MG/ML VIAL IM (01:20)
--- NOTE | 2024-02-08 01:30 | PC.NURSE ---
Pt continues to be physically restrained. Awake and yelling obscenities, attempting to release the restrains. Restraints to be continued at this time as pt remains agitated, uncooperative, and combative.
--- NOTE | 2024-02-08 02:11 | MHC.EDTECH ---
pt resting after being restrained. refused vitals. Will attempt shortly.
--- NOTE | 2024-02-08 02:20 | PC.NURSE ---
Pt sleeping at the bedside. Breaths are even regular and unlabored with equal chest rises. All restraints released. CMS intact. Monitoring is ongoing.
--- NOTE | 2024-02-08 07:57 | PC.NURSE ---
vss and up to date. nsr on the pit crew support worker. pt continues to rest in no apparent distress. sleeping w/ no sob/wob noted. equal rise and fall w/ chest wall. [employer] employee bedside. plan of care ongoing. call umaña placed within reach.
--- NOTE | 2024-02-08 10:15 | PC.NURSE ---
pt awake/alert/oriented. requesting food. pt provided w/ sandwich, gingerale, crackers. has no complaints. resting in no apparent distress. no sob/wob noted. respirations even/unlabored.
[2024-02-08] MEDS: OLANZapine 10 MG VIAL 15 MG IM (10:48)
[2024-02-08] MEDS: Midazolam HCl/PF 2 MG/2 ML VIAL 10 MG IM (10:48)
--- NOTE | 2024-02-08 10:48 | PC.NURSE ---
pt notified/aware that ETA for BLS transportation back to [place] is set up for 1200. pt becoming increasingly agitated/uncooperative/attempting to leave facility so he can smoke a cigarette. pt notified that he is unable to go outside but he can be provided w/ a nicotine patch/nicorette gum. pt was not agreeable with this alternative. pt becoming visibly upset/tearful. pt continuously yelling at staff/making threats. multiple attempts made to de-escalate situation. pt agreeable to be chemically restrained. medication administered per provider order. effectiveness pending.
--- NOTE | 2024-02-08 11:03 | PC.NURSE ---
CARE team currently bedside speaking w/ pt at this time.
--- NOTE | 2024-02-08 11:12 | MHC.CARE ---
Care team was requested to assist with this patient as they were escalating in the ER. Pt was set to be discharged back to [place] however was refusing to go.
--- NOTE | 2024-02-08 11:18 | PC.NURSE ---
medication administration was effective as pt is currently sleeping in no apparent distress. no sob/wob noted. equal rise and fall of chest wall. pt waiting for transportation back to [facility] at this time. plan of care ongoing.
--- NOTE | 2024-02-08 11:25 | MHC.CARE ---
Care team was requested to speak to Pt who was escalating over being sent back to [place] vs home. There were several security officers in the hallway as Pt had to be previously sedated. Pt was hard to understands at times but kept reiterating that he wanted to go home.Care team Sw noted that was not an option and explained why. It took patient several times of hearing this explanation to agree to go back. ER staff was made aware.
--- NOTE | 2024-02-08 11:32 | PC.NURSE ---
pt remains asleep/in no apparent distress. respirations even/unlabored. report given to CORDELL chandler at this time. pt leaving facility.
== END 2024-02-08 11:52 | disposition still patient (30) ==
PROVIDERS: Emergency Medicine Emergency Medical Services; Emergency Provider Emergency Medicine
DX: R41.82 Altered mental status, unspecified (principal); F11.20 Opioid dependence, uncomplicated; R45.6 Violent behavior; Z78.1 Physical restraint status; F31.9 Bipolar disorder, unspecified; F90.9 Attention-deficit hyperactivity disorder, unspecified type; F43.10 Post-traumatic stress disorder, unspecified; F41.9 Anxiety disorder, unspecified; F17.210 Nicotine dependence, cigarettes, uncomplicated; Z79.899 Other long term (current) drug therapy
CPT/HCPCS: 36415; 80053; 80164; 80307; 81003; 83605; 84484; 85025; 93005; 96372; 99285; J1200; J1630; J2060; J2250; J2359

== ENCOUNTER 2024-02-08 11:55 | Emergency (ER) | payer OTHER, MEDICAID, SELFPAY ==
--- NOTE | 2024-02-08 | ECG_ITS ---
Test Reason : CHEST PAIN Blood Pressure : / mmHG Vent. Rate : 100 BPM Atrial Rate : 100 BPM P-R Int : 168 ms QRS Dur : 086 ms QT Int : 358 ms P-R-T Axes : 049 057 062 degrees QTc Int : 461 ms Normal sinus rhythm Normal ECG When compared with ECG of 08-FEB-2024 12:54, Questionable change in QRS axis Referred By: Kvng Roach Electronically Signed By:MARC LINARES
[2024-02-08 12:07] VITALS: BP 103/60; PULSE 74; RESP 16; TEMP 36.2; O2SAT 86; BMI 36.1
[2024-02-08 12:10] VITALS: O2SAT 92
--- NOTE | 2024-02-08 12:36 | PC.NURSE ---
pt represents to ED from [place] on a [address] after recently being discharged from [facility] ED. when returning to [place], supervisor cigar making hand at facility met EMS outside and stated that they gave his bed away and he no longer has a bed available at this time. upon ED arrival - pt's vital signs obtained. pt displaying 86% on RA. pt placed on 2L via NC w/ good effect - resting at 97% in no apparent distress. otherwise vss and up to date. nsr on the cardiac nurse specialist. pt somnolent upon ED arrival d/t previous medication administration. easily arousable to verbal/physical stimuli. plan of care ongoing. call umaña placed within reach.
--- NOTE | 2024-02-08 12:39 | ED.GENADULT ---
HPI - General Adult General Chief complaint: Psychiatric Symptoms Stated complaint: BEHAVIORAL Time Seen by Provider: 02/08/24 12:39 History of Present Illness ED Provider: Tori PHAM narrative: Patient is a 43-year-old male with a history of bipolar disorder, PTSD, ADHD, and substance use disorder. He has recently been psychiatrically hospitalized at the [facility] facility. He has been hospitalized here on our psychiatric unit during most of the month of December. He was hospitalized on January 02 through January 20. At discharge from this hospital he was discharged on lithium, Trileptal, and Adderall. I believe that he was discharged to return home to his home in at all but he was subsequently hospitalized at [facility]. He was sent to the emergency room here yesterday on February 06 because of somnolence or possibly a seizure. There was suspicion that he might have used some kind of substance at the psychiatric facility and was sent here for medical clearance. The the patient was seen and was medically cleared to return to [facility] but the patient became belligerent and required sedation. This morning the patient seemed stable to return to [facility]. The patient became somewhat belligerent this morning and, as we were trying to calm him down he ultimately chose to accept IM injections. He was given midazolam on olanzapine. He ultimately agreed to return to [facility] and was discharged. However when the ambulance arrived at [facility] it seemed as though his bed has been given away and so the ambulance brought him back to the emergency room. Related Data Home Medications ?Medication ?Instructions ?Recorded ?Confirmed clonidine HCl 0.1 mg tablet 0.1 mg PO BID 02/08/24 02/08/24 divalproex 500 mg tablet,delayed 500 mg PO BID 02/08/24 02/08/24 release famotidine 20 mg tablet 20 mg PO BID 02/08/24 02/08/24 ferrous sulfate 325 mg (65 mg 325 mg PO DAILY 02/08/24 02/08/24 iron) tablet folic acid 1 mg tablet 1 mg PO DAILY 02/08/24 02/08/24 gabapentin 600 mg tablet 600 mg PO TID 02/08/24 02/08/24 haloperidol 5 mg tablet 5 mg PO BID 02/08/24 02/08/24 haloperidol 5 mg tablet 5 mg PO Q6H PRN Agitation 02/08/24 02/08/24 hydroxyzine pamoate 50 mg capsule 50 mg PO QID PRN Anxiety 02/08/24 02/08/24 lorazepam 1 mg tablet 1 mg PO BID 02/08/24 02/08/24 methadone 10 mg/mL oral 30 mg PO DAILY 02/08/24 02/08/24 concentrate (Methadose) methadone 10 mg/mL oral 35 mg PO BEDTIME 02/08/24 02/08/24 concentrate (Methadose) methadone 10 mg/mL oral 120 mg PO DAILY 02/08/24 02/08/24 concentrate (Methadose) thiamine HCl (vitamin B1) 100 mg 100 mg PO DAILY 02/08/24 02/08/24 tablet trazodone 50 mg tablet 50 mg PO BEDTIME PRN Insomnia 02/08/24 02/08/24 Allergies Allergy/AdvReac Type Severity Reaction Status Date / Time Penicillins [PENICILLINS] Allergy Severe ANAPHYLACTI Verified 02/08/24 12:08 C codeine [CODEINE] Allergy Mild RASH Verified 02/08/24 12:08 Review of Systems Review of Systems: Yes all other systems are reviewed and are negative [facility] Past Medical History Medical History (Updated 02/08/24 @ 17:15 by Travis Valle MD) ADHD Bipolar disorder, unspecified Seizures Anxiety Opiate abuse, episodic Bipolar 1 disorder Social History Social History (Updated 01/01/24 @ 09:23 by Antonette Pritchett DO) Household Members: None Housing: Homeless Do you presently have visiting nurse or other home services: No Unable to assess alcohol history related to: Unknown Alcohol intake: former Patient Tobacco Use Status: Current everyday Tobacco user Tobacco use type: Cigarette e-Cigarette/Vaping Use: Never Used Second Hand Smoke Exposure: Yes Substance Use Type: IV Drugs, Marijuana and Opiates Advance Directives: No Advance Directives Information Provided: No Do you have a plan to hurt others: No Plan service: No Sexual orientation: Don't Know Physical Exam ED Vital Signs: Vital Signs - 24 hr 02/08/24 12:07 02/08/24 12:10 02/08/24 13:49 Temperature 97.1 F 97.2 F Pulse Rate 74 72 Respiratory Rate 16 16 Blood Pressure 103/60 103/68 Pulse Oximetry 86 L 92 98 Oxygen Delivery Method Room Air Nasal Cannula Nasal Cannula Oxygen Flow Rate 2 2 02/08/24 16:57 Temperature 97.2 F Pulse Rate 88 Respiratory Rate 18 Blood Pressure 119/56 L Pulse Oximetry 94 Oxygen Delivery Method Room Air Oxygen Flow Rate BMI result Body Mass Index 36.1 Const Other: The patient arrives sedated. He had received olanzapine and midazolam prior to being discharged and he has returned while these sedatives are still in effect. He seemed to be protecting his own airway. HENMT Other: Face is symmetrical. Airway clear. Gag reflex intact. Eyes Other: Pupils are round equal, conjunctivae clear Neck Other: Neck is supple Resp Effort & Inspection: normal respiratory effort Auscultation: clear to auscultation bilaterally Cardio Rate: regular rate Rhythm: regular rhythm Heart sounds: S1 normal heart sound present and S2 normal heart sound present GI Other: Abdomen is soft and not apparently tender Skin Other: Skin is dry and unremarkable Neuro Other: The patient was sedated. He was breathing spontaneously. He responded appropriately to noxious stimuli. His face is symmetrical. Pupils are round equal, eye movements seem intact, tone is symmetrical in all 4 extremities. Later the patient was awake and alert with a normal mental status. He had intact cranial nerves. He moves all extremities normal with a normal gait and coordination. He is neurologically intact. Extrem Other: No peripheral edema. Medical Decision Making Medical Decision Making MDM Narrative: The patient is a 43-year-old male with a history of multiple severe mental health issues. He was seen in our emergency room yesterday and spent the night. He then returned to [facility] immediately prior to returning. Apparently [facility] had given away his bed and therefore had him sent back to the emergency room. He had received sedation here in the emergency room voluntarily prior to discharge. He arrived sedated. Since returning the sedation has worn off and he has returned to a normal mental status. At this point his status is somewhat anomalous. He had been sent here initially on a section 21. Since his psychiatric hospital can not receive him back we will have him seen by our care team for additional recommendations about next steps. At the moment he does not seem to have any acute medical issue. He is therefore medically cleared for evaluation by the care team. Lab Data 02/08/24 16:23 02/08/24 13:25 Labs: Lab Results 02/08/24 02/08/24 Range/Units 13:25 16:23 RBC 5.14 (4.60-5.80) X10*6/uL Hgb 14.3 (14.0-18.0) g/dl Hct 43.7 (42.0-52.0) % MCV 85.0 (80.0-98.0) fL MCH 27.8 (27.0-33.0) pg MCHC 32.7 (31.0-36.0) g/dl RDW 13.9 (11.0-16.0) % MPV 9.6 (9.4-12.4) fL Immature Gran % (Auto) 0.4 (0.0-0.4) % Neut % (Auto) 54.7 (45-73) % Lymph % (Auto) 32.9 (20-40) % [place] % (Auto) 8.9 (2-11) % Eos % (Auto) 2.5 (0-4) % Baso % (Auto) 0.6 (0-2) % Lymph # (Auto) 1.7 (1.2-4.9) X10*3/uL [place] # (Auto) 0.5 (0.1-1.2) X10*3/uL Eos # (Auto) 0.1 (0.0-0.4) X10*3/uL Baso # (Auto) 0.0 (0.0-0.2) X10*3/uL Abs Immat Gran (auto) 0.02 (0.00-0.03) X10*3/uL Absolute Neuts (auto) 2.8 (2.0-8.3) x10*3/uL Absolute Nucleated RBC 0.000 (0.0-0.012) X10*3/uL Nucleated RBC % (auto) 0.0 (0.0-0.2) /100WBC Sodium 142 (135-145) mmol/L Potassium 4.4 (3.3-5.1) mmol/L Chloride 110 H (96-108) mmol/L Carbon Dioxide 24 (22-29) mmol/L Anion Gap 12 (12-20) BUN 18 H (9-16) mg/dL Creatinine 0.84 (0.5-1.4) mg/dL Estim Creat Clear Calc 140.6 Estimated GFR > 60 Random Glucose 97 (60-115) mg/dL Calcium 9.1 (8.4-10.2) mg/dL Total Bilirubin 0.3 (0.0-1.0) mg/dL Direct Bilirubin 0.1 (0.0-0.5) mg/dL AST 52 H (5-37) U/L ALT 44 H (0-40) U/L Alkaline Phosphatase 87 (39-117) U/L Total Protein 6.5 (6.5-8.0) g/dL Albumin 3.6 (3.5-5.0) g/dL Valproic Acid < 12.5 L (50.0-100.0) mcg/mL [place] < 0.10 L (0.60-1.20) mmol/L Independent Interpretation I performed an independent interpretation of an: EKG Interpretation: EKG at 12:54 showed normal sinus rhythm at 69 beats per minute. It is a normal EKG. Discharge Plan Discharge Clinical Impression: Bipolar disorder, unspecified Patient Disposition: Still a Patient Prescriptions: No Action clonidine HCl 0.1 mg Tablet 0.1 mg PO BID gabapentin 600 mg Tablet 600 mg PO TID haloperidol 5 mg Tablet 5 mg PO BID haloperidol 5 mg Tablet 5 mg PO Q6H PRN (Reason: Agitation) trazodone 50 mg Tablet 50 mg PO BEDTIME PRN (Reason: Insomnia) thiamine HCl (vitamin B1) 100 mg Tablet 100 mg PO DAILY hydroxyzine pamoate 50 mg Capsule 50 mg PO QID PRN (Reason: Anxiety) divalproex 500 mg Tablet,Delayed Release (Dr/Ec) 500 mg PO BID famotidine 20 mg Tablet 20 mg PO BID ferrous sulfate 325 mg (65 mg iron) Tablet 325 mg PO DAILY folic acid 1 mg Tablet 1 mg PO DAILY methadone [Methadose] 10 mg/mL Concentrate 30 mg PO DAILY methadone [Methadose] 10 mg/mL Concentrate 35 mg PO BEDTIME methadone [Methadose] 10 mg/mL Concentrate 120 mg PO DAILY lorazepam 1 mg Tablet 1 mg PO BID Print Language: Malay
--- NOTE | 2024-02-08 12:49 | ECG_ITS ---
Test Reason : WEAKNESS Blood Pressure : / mmHG Vent. Rate : 069 BPM Atrial Rate : 069 BPM P-R Int : 176 ms QRS Dur : 098 ms QT Int : 418 ms P-R-T Axes : 032 001 056 degrees QTc Int : 447 ms Normal sinus rhythm Normal ECG When compared with ECG of 07-FEB-2024 14:59, No significant change was found Referred By: Travis Valle Electronically Signed By:MARC LINARES
--- NOTE | 2024-02-08 13:01 | PC.NURSE ---
ekg performed/labs obtained and sent to lab by [facility]. urinal placed bedside for pt convenience so urine can be obtained/sent to lab. pt continues to remain calm/cooperative since representing to the ED. respirations remain even/unlabored. plan of care ongoing. call umaña placed within reach.
[2024-02-08 13:49] VITALS: BP 103/68; PULSE 72; RESP 16; TEMP 36.2; O2SAT 98
[2024-02-08 13:56] LABS: Lithium < 0.10 mmol/L (0.60-1.20); Valproate < 12.5 mcg/mL (50.0-100.0)
[2024-02-08 14:00] LABS: Alanine Aminotransferase 44 U/L (0-40); Albumin Level 3.6 g/dL (3.5-5.0); Alkaline Phosphatase 87 U/L (39-117); Anion Gap 12 (12-20); Aspartate Amino Transferase 52 U/L (5-37); Bilirubin Direct 0.1 mg/dL (0.0-0.5); Bilirubin Total 0.3 mg/dL (0.0-1.0); Blood Urea Nitrogen 18 mg/dL (9-16); Calcium 9.1 mg/dL (8.4-10.2); Carbon Dioxide 24 mmol/L (22-29); Chloride 110 mmol/L (96-108); Creatinine Clr Calc Pharmacy 140.6; Estimated Glomerular Filt Rate > 60; Glucose Random 97 mg/dL (60-115); Potassium 4.4 mmol/L (3.3-5.1); Sodium 142 mmol/L (135-145); Total Protein 6.5 g/dL (6.5-8.0)
--- NOTE | 2024-02-08 14:40 | PC.NURSE ---
pt changed over into ligature free hospital attire. belongings obtained/list created. pt continues to rest in no apparent distress. no sob/wob noted. respirations even/unlabored. 1:1 sitter present. plan of care ongoing.
[2024-02-08 16:43] LABS: Basophils Percent Auto 0.6 % (0-2); Eosinophils Absolute Auto 0.1 X10*3/uL (0.0-0.4); Eosinophils Percent Auto 2.5 % (0-4); Hematocrit 43.7 % (42.0-52.0); Hemoglobin 14.3 g/dl (14.0-18.0); Imm Gran Abs Auto 0.02 X10*3/uL (0.00-0.03); Imm Gran Pct Auto 0.4 % (0.0-0.4); Lymphocytes Absolute Auto 1.7 X10*3/uL (1.2-4.9); Lymphocytes Percent Auto 32.9 % (20-40); MANUAL DIFF FLAG SCAN; Mean Corpuscular HGB Conc 32.7 g/dl (31.0-36.0); Mean Corpuscular Hemoglobin 27.8 pg (27.0-33.0); Mean Platelet Volume 9.6 fL (9.4-12.4); Monocytes Absolute Auto 0.5 X10*3/uL (0.1-1.2); Monocytes Percent Auto 8.9 % (2-11); Neutrophils Absolute Auto 2.8 x10*3/uL (2.0-8.3); Neutrophils Percent Auto 54.7 % (45-73); PLT CLUMP 1; Red Blood Count 5.14 X10*6/uL (4.60-5.80); Red Cell Distribution Width 13.9 % (11.0-16.0); SCAN SMEAR FLAG 1
[2024-02-08 16:57] VITALS: BP 119/56; PULSE 88; RESP 18; TEMP 36.2; O2SAT 94
--- NOTE | 2024-02-08 17:00 | PC.NURSE ---
vss and up to date. pt continues to remain calm/cooperative. respirations remain even/unlabored. 1:1 sitter present. plan of care ongoing.
[2024-02-08 17:04] LABS: White Blood Count 5.2 X10*3/uL (4.8-10.8)
[2024-02-08 17:08] LABS: SLIDE REVIEW VERIFIED
--- NOTE | 2024-02-08 17:16 | PC.NURSE ---
report given to CEE Perez in the pod at this time.
--- NOTE | 2024-02-08 17:54 | PHA.MEDREC ---
Pharmacy Consult ? Medication Reconciliation Pharmacy has completed the medication reconciliation. confirmed med rec using list provided by [facility].
--- NOTE | 2024-02-08 17:55 | HE.PHANOTE ---
re methadone verification pt is on split dose at [facility]. gets 150 mg in morning and 35 mg at bedtime. last dose given at [facility] was 150 mg morning dose on 02/07/24 (missed 02/06/25 bedtime dose).
[2024-02-08] MEDS: methADONE HCl 20 MG/2 ML ORAL.CONC 150 MG PO (19:08)
[2024-02-08] MEDS: HaloperidoL 5 MG TABLET PO (21:52)
[2024-02-08] MEDS: Gabapentin 600 MG TABLET PO (21:52)
[2024-02-08] MEDS: LORazepam 1 MG TABLET PO (21:52)
[2024-02-08] MEDS: Divalproex Sodium 500 MG TABLET.DR PO (21:53)
[2024-02-08] MEDS: cloNIDine HCL 0.1 MG TABLET PO (21:53)
[2024-02-08] MEDS: methADONE HCl 20 MG/2 ML ORAL.CONC 35 MG PO (23:02)
[2024-02-08 23:48] VITALS: BP 120/81; PULSE 106; RESP 22; TEMP 36.7; O2SAT 95
--- NOTE | 2024-02-08 23:49 | MHC.EDTECH ---
Pt complaining of chest pain. unit control worker made aware. VS taken and given to RN. EKG taken and brought to MD. RN aware of HR at 106 bpm.
[2024-02-09] MEDS: HaloperidoL 5 MG TABLET PO ×3 (00:19→20:47)
[2024-02-09] MEDS: hydrOXYzine HCL 50 MG TABLET PO (00:19)
[2024-02-09] MEDS: traZODone HCL 50 MG TABLET PO (00:19)
--- NOTE | 2024-02-09 00:23 | PC.NURSE ---
patient moderately restless ater c/o CP but soon thereafter requested ice creams (had already had two so far) t/w set limits as perhaps his percived chest pain is actually reflux. t/w soon hereafter gave client some medications to help with this possoib;e agitation. seemingly negative attention seeking.
[2024-02-09] MEDS: Famotidine 20 MG TABLET PO ×2 (06:29→16:52)
[2024-02-09 06:35] VITALS: BP 113/68; PULSE 82; RESP 18; TEMP 36.2; O2SAT 95
[2024-02-09] MEDS: Ferrous Sulfate 324 MG TABLET.DR PO (11:43)
[2024-02-09] MEDS: Divalproex Sodium 500 MG TABLET.DR PO (11:43)
[2024-02-09] MEDS: LORazepam 1 MG TABLET PO (11:44)
[2024-02-09] MEDS: Folic Acid 1 MG TABLET PO (11:44)
[2024-02-09] MEDS: methADONE HCl 20 MG/2 ML ORAL.CONC 150 MG PO (11:44)
[2024-02-09] MEDS: Thiamine HCL 100 MG TABLET PO (11:44)
[2024-02-09] MEDS: cloNIDine HCL 0.1 MG TABLET PO ×2 (11:44→20:47)
[2024-02-09] MEDS: Gabapentin 600 MG TABLET PO (11:44)
--- NOTE | 2024-02-09 13:10 | MHC.CARE ---
Pt seen for psych consult, Sandra Villarreal [employer]OUSSEAU CONSULTANT holding Ativan and Gabapentin as patient continues to present as over sedated . See note in [facility], patient will need disposition follow up tomorrow 02/10/24.
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
[2024-02-09 13:27] LABS: Ammonia 36 umol/L (13-55)
[2024-02-09 19:50] VITALS: BP 114/72; PULSE 85; RESP 16; TEMP 36.1; O2SAT 96
[2024-02-09 20:47] VITALS: BP 112/76
[2024-02-09] MEDS: methADONE HCl 20 MG/2 ML ORAL.CONC 35 MG PO (20:51)
--- NOTE | 2024-02-09 21:16 | MHC.EDTECH ---
Patient was given two sandwiches,and a cup of abdoul carolyn.
[2024-02-09 22:17] VITALS: BP 101/55; PULSE 78; RESP 16; TEMP 36.1; O2SAT 99
--- NOTE | 2024-02-09 23:27 | PC.NURSE ---
Assumed care of pt. Pt awake and watching television, no acute distress at this time.
[2024-02-10 05:40] VITALS: BP 109/68; PULSE 88; RESP 18; TEMP 36.5; O2SAT 97
[2024-02-10] MEDS: Famotidine 20 MG TABLET PO (06:34)
[2024-02-10] MEDS: Thiamine HCL 100 MG TABLET PO (08:10)
[2024-02-10] MEDS: HaloperidoL 5 MG TABLET PO (08:10)
[2024-02-10] MEDS: cloNIDine HCL 0.1 MG TABLET PO (08:10)
[2024-02-10] MEDS: Ferrous Sulfate 324 MG TABLET.DR PO (08:10)
[2024-02-10] MEDS: Folic Acid 1 MG TABLET PO (08:10)
[2024-02-10] MEDS: methADONE HCl 20 MG/2 ML ORAL.CONC 150 MG PO (08:11)
[2024-02-10] MEDS: LORazepam 1 MG TABLET PO (12:43)
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
[2024-02-10] MEDS: Naloxone HCl Nasal TAKE HOME 4 MG SPRAY 8 MG NOSTRILALT (13:47)
--- NOTE | 2024-02-10 14:11 | MHC.CARE ---
Patient reassessed by the CARE Team and psychiatry, he does not require an inpatient psychiatric placement at this time. ED provider, Dr. Conde updated
[2024-02-10 14:13] VITALS: BP 109/68; PULSE 88; RESP 18; TEMP 36.5; O2SAT 97
== END 2024-02-10 14:19 | disposition home or self-care (01) ==
PROVIDERS: Social Worker; Emergency Provider Emergency Medicine
DX: F31.9 Bipolar disorder, unspecified (principal); F43.10 Post-traumatic stress disorder, unspecified; F90.9 Attention-deficit hyperactivity disorder, unspecified type; F41.9 Anxiety disorder, unspecified; F11.20 Opioid dependence, uncomplicated; F17.210 Nicotine dependence, cigarettes, uncomplicated; Z79.899 Other long term (current) drug therapy
CPT/HCPCS: 36415; 80048; 80076; 80164; 80178; 82140; 85025; 93005; 99285; S9485

== ENCOUNTER → 2024-02-08 12:32 | Outpatient (BNV) | payer OTHER, SELFPAY | PROVIDERS: Emergency Provider Emergency Medicine; Visit Provider Social Worker | DX: F31.4 Bipolar disorder, current episode depressed, severe, without psychotic features (principal); F11.21 Opioid dependence, in remission | CPT/HCPCS: 99232; 99284 ==